=== PATIENT | male | born 1945 | race African-American/Black ===

== ENCOUNTER 2017-01-19 03:34 | Inpatient (IN) ==
[2017-01-19] MEDS ORDERED: CARDIZEM ONE (03:38)
[2017-01-19] MEDS ORDERED: CARDIZEM 100 MG/NS 100 MG/100 ML IVPB ONE (03:40)
--- NOTE | 2017-01-19 04:04 | PROVIDER DOCUMENTATION ---
HPI-Cardiac General - General Chief Complaint: Palpitations Stated Complaint: SOB Time Seen by Provider: 01/19/17 03:45 Source: patient, old records Allergies/Adverse Reactions: Patient Allergies Allergy/AdvReac Type Severity Reaction Status Date / Time No Known Allergies Allergy Verified 11/17/14 04:09 Home Medications: Home Medication List Medication Instructions Recorded Confirmed Last Taken Type Allopurinol 300 mg PO QAM 01/19/17 01/19/17 01/18/17 08:00 History Apixaban [Eliquis] 5 mg PO BID 01/19/17 01/19/17 01/18/17 20:00 History Atorvastatin Calcium 20 mg PO QHS 01/19/17 01/19/17 01/18/17 20:00 History Cholecalciferol (Vitamin D3) 400 unit PO QAM 01/19/17 01/19/17 01/18/17 08:00 History [Vitamin D] Magnesium Oxide 400 mg PO QHS 01/19/17 01/19/17 01/18/17 20:00 History Metoprolol Tartrate 50 mg PO BID 01/19/17 01/19/17 01/18/17 20:00 History Multivitamin [Multivitamins] 1 each PO QAM 01/19/17 01/19/17 01/18/17 08:00 History Tamsulosin HCl 0.8 mg PO QAM 01/19/17 01/19/17 01/18/17 08:00 History - History of Present Illness-Cardiac Nature of Presenting Problem: Patient awoke from sleep about 45 min ago with sob and palpitations. He was last hospitalized in Nov 2014 with atrial fib with RVR, discharged on dig and metoprolol and has remained in sinus rhythm until tonight. He did undergo cardiac cath confirming mild, diffuse coronary disease. Tonight he c/o orthopnea, SOB and palpitations. No chest pain. Quality of Pain: reports: none Context/Activities at Onset: reports: sleep Modifying Factors: improves with: nothing Palpitation Quality: fast/pounding heart beat History of arrythmia: reports: A-Fib Recent use of:: reports: no stimulants Nitro Today/Relief: reports: no nitro taken today Aspirin Treatment Today: reports: no aspirin today Prior Chest Pain/Cardiac Workup: reports: cardiac cath, cardiolite scan, echocardiography Associated Symptoms: reports: shortness of breath, weakness Similar Symptoms Previously?: Yes Recently Seen Here or By Another Healthcare Provider: No Review of Systems - Adult - REVIEW OF SYSTEMS - ADULT Constitutional: reports: no symptoms reported Eyes: reports: no symptoms reported Ears, Nose, Mouth & Throat: reports: no symptoms reported Cardiovascular: reports: see HPI Respiratory: reports: chronic cough, wheezing Gastrointestinal: reports: no symptoms reported Genitourinary: reports: no symptoms reported Musculoskeletal: reports: no symptoms reported Integumentary: reports: no symptoms reported Neurological: reports: no symptoms reported Psychiatric: reports: no symptoms reported Past History - Adult - PAST MEDICAL HISTORY-ADULT Review of Records: reports: Old Records Reviewed, Nursing Assessment Review, Medications Reviewed Major Childhood Illnesses: reports: denies history Cardiovascular: reports: HTN, hyperlipidemia Respiratory: reports: other (chronic sinus infections) Gastrointestinal: reports: ulcer Genitourinary: reports: denies history Musculoskeletal: reports: denies history Neurological: reports: denies history Psychiatric: reports: denies history Endocrine/Immune: reports: denies history Other Conditions: reports: denies history - PRIOR SURGERIES/PROCEDURES Surgical/Procedure History: reports: orthopedic (extremity) (rotator cuff) - FAMILY HISTORY Family History: reviewed, not pertinent Physical Exam-General - PHYSICAL EXAM-ADULT Initial Vital Signs Reviewed: Yes - CONSTITUTIONAL General Appearance: moderate distress, thin - EYES Eyes: PERRL/EOMI, pink conjunctivae - HEAD, EARS, NOSE, MOUTH & THROAT HENMT: normocephalic/atraumatic, moist mucous membranes, normal ENT inspection - NECK Neck: non-tender, full range of motion - RESPIRATORY Respiratory: chest non-tender, respiratory distress, decreased breath sounds, wheezing - CARDIOVASCULAR Cardiovascular: tachycardia, irregularly irregular - GASTROINTESTINAL (ABDOMEN) Abdominal Exam: non tender, soft, no organomegaly - MUSCULOSKELETAL Back Exam: normal inspection Extremity: normal range of motion, non-tender Peripheral Pulses: radial (R): 3+ - SKIN Integumentary: normal color, normal turgor - NEUROLOGIC Neurologic: grossly normal - PSYCHIATRIC Psych/Mental Status: normal mood/affect Progress - PLAN OF CARE/RESULTS Progress/Plan/Lab Results: Vital Signs - 8 hr 01/19/17 03:41 01/19/17 04:38 Temperature 98.5 F Pulse Rate 137 H 83 Respiratory Rate 26 H 20 Blood Pressure 153/109 147/90 O2 Sat by Pulse Oximetry 95 97 Laboratory Results - last 24 hr 01/19/17 01/19/17 01/19/17 03:56 03:56 03:56 WBC 11.82 H RBC 4.84 Hgb 14.2 Hct 41.8 L MCV 86.4 MCH 29.3 MCHC 34.0 RDW Std Deviation 14.6 H Plt Count 257 MPV 10.6 H Immature Gran % (Auto) 0.3 Neut % (Auto) 66.8 Lymph % (Auto) 24.8 [place] % (Auto) 5.9 Eos % (Auto) 1.9 Baso % (Auto) 0.3 Immature Gran # (Auto) 0.04 Neut # (Auto) 7.88 H Lymph # (Auto) 2.93 [place] # (Auto) 0.70 H Eos # (Auto) 0.23 Baso # (Auto) 0.04 Sodium 142 Potassium 4.2 Chloride 107 Carbon Dioxide 24 L Anion Gap 11 BUN 23 H Creatinine 1.7 H Estimated GFR/1.73 m2 48 BUN/Creatinine Ratio 14 Glucose 160 H Calculated Osmolality 290 Calcium 9.1 Magnesium 2.1 Total Bilirubin 0.76 AST 37 H ALT 35 Alkaline Phosphatase 91 Troponin T Total Protein 7.2 Albumin 4.2 Globulin 3.0 Albumin/Globulin Ratio 1.4 TSH Digoxin < 0.2 L 01/19/17 01/19/17 03:56 03:56 WBC RBC Hgb Hct MCV MCH MCHC RDW Std Deviation Plt Count MPV Immature Gran % (Auto) Neut % (Auto) Lymph % (Auto) [place] % (Auto) Eos % (Auto) Baso % (Auto) Immature Gran # (Auto) Neut # (Auto) Lymph # (Auto) [place] # (Auto) Eos # (Auto) Baso # (Auto) Sodium Potassium Chloride Carbon Dioxide Anion Gap BUN Creatinine Estimated GFR/1.73 m2 BUN/Creatinine Ratio Glucose Calculated Osmolality Calcium Magnesium Total Bilirubin AST ALT Alkaline Phosphatase Troponin T < 0.010 Total Protein Albumin Globulin Albumin/Globulin Ratio TSH 5.41 H Digoxin Orders Category Date Time Status CHEST-PORTABLE [RAD] Stat Exams 01/19/17 03:47 Taken CBC WITH ELECTRONIC DIFF [HEME] Stat Lab 01/19/17 03:56 Completed COMPREHENSIVE METABOLIC PANEL [CHEM] Stat Lab 01/19/17 03:56 Completed DIGOXIN [TDM] Stat Lab 01/19/17 03:56 Completed MAGNESIUM [CHEM] Stat Lab 01/19/17 03:56 Completed TROPONIN T Stat Lab 01/19/17 03:56 Completed TSH Stat Lab 01/19/17 03:56 Completed Diltiazem 100 mg/Ns [Cardizem 100 mg/Ns] Med 01/19/17 03:40 Discontinued 100 mg in 100 ml .ROUTE As Directed Diltiazem 100 mg/Ns [Cardizem 100 mg/Ns] Med 01/19/17 04:20 Active 100 mg in 100 ml IV Per Protocol Diltiazem [Cardizem] Med 01/19/17 04:20 Discontinued 20 mg IV NOW ONE Diltiazem [Cardizem] Med 01/19/17 03:38 Discontinued 25 mg .ROUTE .STK-MED ONE Ondansetron [Zofran] Med 01/19/17 04:46 Discontinued 4 mg .ROUTE .STK-MED ONE Ondansetron [Zofran] Med 01/19/17 04:51 Discontinued 4 mg IV NOW ONE EKG [EKG] Stat Ther 01/19/17 03:34 Ordered Result Diagrams: 01/19/17 03:56 01/19/17 03:56 - XRAY 1 XRAY Study: Chest Impression: See EMR Report (mild pul edema) - CONSULTS/PCP/HOSPITALIST Notification #1 *Consult/PCP/Hospitalist*: Dr Herrmann Time Discussed: 05:01 Consult Disposition: Will see in ED Departure - Departure Date of Disposition Decision: 01/19/17 Time of Disposition Decision: 05:01 DIAGNOSIS: Atrial fibrillation with rapid ventricular response Disposition: HOME 01 Certified Medical Emergency: Emergent Condition: Fair Referrals and Follow-Ups: None,PCP [Primary Care Provider] - - Critical Care Note This patient required my direct & personal management of CC.: No Attestation - Physician/ DONALD Attestation Patient care was provided by Advanced Practice Provider:: No The physician spent face to face time with patient:: Yes Advanced Practice Provider documentation review:: Supervising physician onsite and consulted in the evaluation and care of this patient. The physician did have a face to face encounter with the patient.
[2017-01-19 04:08] LABS: MANUAL DIFF NEEDED? NO
[2017-01-19 04:12] LABS: BASO% 0.3 % (0.0-0.8); EOS# 0.23 X1000 (0.0-0.7); EOS% 1.9 % (0.0-10.0); HEMATOCRIT 41.8 % (42.0-52.0); HEMOGLOBIN 14.2 g/dL (14.0-18.0); IMM GRAN# 0.04 X1000 (0.0-0.04); IMM GRAN% 0.3 % (0.0-0.5); LYMPH# 2.93 X1000 (1.2-3.4); LYMPH% 24.8 % (20.5-51.1); MCH 29.3 PG (27-31); MCV 86.4 FL (81-99); MONO% 5.9 % (1.7-9.3); MPV 10.6 FL (7.4-10.4); NEUT% 66.8 % (42.2-75.2); PLT 257 X1000 (130-400); RBC 4.84 XMIL (4.7-6.1)
[2017-01-19] MEDS ORDERED: CARDIZEM IV ONE (04:20)
[2017-01-19] MEDS ORDERED: CARDIZEM 100 MG/NS 100 MG/100 ML IVPB IV SCH (04:20)
[2017-01-19 04:26] LABS: ALBUMIN 4.2 g/dL (3.5-5.0); CALCIUM 9.1 mg/dL (8.8-10.2); MAGNESIUM 2.1 mg/dL (1.5-2.7); POTASSIUM 4.2 mmol/L (3.5-5.1); TOTAL BILIRUBIN 0.76 mg/dL (0.20-1.00); TOTAL PROTEIN 7.2 g/dL (6.3-8.3)
[2017-01-19] MEDS ORDERED: ZOFRAN ONE (04:46)
[2017-01-19] MEDS ORDERED: ZOFRAN IV ONE (04:51)
[2017-01-19] MEDS ORDERED: ZOFRAN IV PRN (05:49)
--- NOTE | 2017-01-19 06:37 | EKG Report ---
Test Performed on : 01/19/2017 03:28:10 AM Test Reason : SOB Blood Pressure : / mmHG Vent. Rate : 173 BPM Atrial Rate : 192 BPM P-R Int : 000 ms QRS Dur : 080 ms QT Int : 244 ms P-R-T Axes : 000 030 209 degrees QTc Int : 413 ms Atrial fibrillation. with rapid ventricular response. ST \T\ T wave abnormality, consider inferior ischemia ST \T\ T wave abnormality, consider anterolateral ischemia Abnormal ECG When compared with ECG of 20-NOV-2014 06:57, Atrial fibrillation. has replaced Sinus rhythm. Vent. rate has increased BY [address] now depressed in Anterolateral leads Inverted T waves have replaced nonspecific T wave abnormality in Lateral leads Unconfirmed Result
--- NOTE | 2017-01-19 07:24 | Diag Imaging Result Doc PS360 ---
CHEST-PORTABLE - 01/19/2017 INDICATION: sob TECHNIQUE: COMPARISON: 11/17/2014 FINDINGS: There are new diffuse bilateral ill-defined interstitial infiltrates. There is pulmonary vascular congestion new from prior. Heart size remains top normal. No pneumothorax or large effusion. IMPRESSION: Pulmonary vascular congestion and pulmonary edema. Electronically signed by Ignacio Rios 01/19/2017 7:21 AM
[2017-01-19] MEDS: TYLENOL PO PRN ×2 (08:12→21:20)
--- NOTE | 2017-01-19 09:15 | HISTORY AND PHYSICAL ---
CHIEF COMPLAINT: Palpitations and shortness of breath. HISTORY OF PRESENT ILLNESS: This 71-year-old male presented to the emergency room after waking up with a fluttering in his chest. He has carried the diagnosis of paroxysmal atrial fibrillation since at least 2014, when he was admitted to this hospital, and had a complete workup by Dr. Eric Keller, including heart catheterization and appropriate therapies. Patient had actually seen his primary care doctor, a Dr. Cavazos, in [place] yesterday, and the doctor told him to go to the emergency room if he had any difficulty with his heart. He apparently awoke in the middle of night with a rapid fluttering in his chest and became short of breath. He presented to the emergency room and according to the emergency room physician, had initial heart rate in the 180s. He had a negative cardiac enzyme workup and was made much more comfortable by reduction in heart rate via the application of IV diltiazem. The patient is admitted for Cardiology consultation and tune-up of his medications. It is noted the patient has not seen Dr. Keller since the workup in 2014 that I am aware of. PAST MEDICAL HISTORY: 1. Hypertension. 2. Hyperlipidemia. 3. Paroxysmal atrial fibrillation. 4. Gout. SURGICAL HISTORY: 1. Left rotator cuff repair. 2. Cardiac catheterization in 2014 which showed 35% to 40% right coronary disease and normal ejection fraction with no significant valvular abnormalities. SOCIAL HISTORY: The patient quit smoking 2 years ago after his workup here at [facility]. Prior to that, he smoked a pack and half a day for at least 50 years. He has not used any alcohol or drugs. He is a [place] . He gets a considerable amount of his care through the [facility]. He did not have known exposure to Agent [place]. FAMILY HISTORY: Positive prostate cancer. ALLERGIES: No known drug allergies. MEDICATIONS: The patient states he takes Eliquis and metoprolol. He did not list any other medications to me, but may be taking something for lipids as well. REVIEW OF SYSTEMS: Patient denies any cough, wheezing, shortness of breath prior to the onset of this palpitations tonight. At no time during this episode did he have any chest pain consistent with coronary disease. In fact, he had no chest pain at all. He had a slight bit of nausea, but did not vomit. This resolved as his heart rate came down. He has had normal bowel function with no dark stools or bloody stools. She has normal urinary function. He has not had any swelling of his extremities. He denies any symptoms consistent with orthopnea. He has had no fever or chills, and his weight is stable. There been no neurological or psychiatric changes in the patient. VITAL SIGNS: Initial vital signs listed from the emergency room are 98.5, heart rate 137, respiratory rate 26, blood pressure 153/109, 90% oxygen saturated on room air. As reported earlier in this text, the initial heart rate was in the 180s, but I was not able to locate that initial EKG in the emergency room. PHYSICAL EXAM: GENERAL: He is a well-developed black male in no acute distress. NEUROLOGIC: He is alert, oriented, conversive, and appropriate. NECK: There is no JVD in the semirecumbent position. LUNGS: Clear, but he has somewhat diminished air movement consistent with COPD. He is not wheezing. He states that he was wheezing at home, but I did not hear it. CARDIOVASCULAR: The patient is in irregularly irregular rhythm which shows atrial fibrillation, on the monitor. His heart rate is variable, but within the realm of the 80s and 90s at the present time. ABDOMEN: Bowel sounds are present. He is nontender and nondistended. GENITOURINARY AND RECTAL: Not performed. EXTREMITIES: No peripheral edema. LABORATORIES: White cell count was 11.8, hematocrit 41.8. Carbon dioxide was 24, BUN 23, creatinine 1.7 (baseline from 2015 is 1.5), glucose was 160 (no known history of diabetes). Cardiac enzymes were negative. TSH slightly elevated at 5.4. ASSESSMENT AND PLAN: 1. The patient has had a flare-up of his paroxysmal atrial fibrillation and likely needs medication tune-up. Because they have already have a titrated diltiazem drip hanging, we will admit to the [facility] and get Cardiology consultation during daylight hours. The patient may have suffered from some pulmonary edema during his most rapid heart rate. Hopefully, this has resolved as heart rate has come down, but may bear further monitoring. 2. I have consulted Dr. Casanova for 8 o'clock in the morning. 3. The patient had signs and symptoms consistent with his smoking history and chronic obstructive pulmonary disease. I do not think he has acute exacerbation at the present time. We will continue to monitor this. He will have oxygen administered. 4. We may want to investigate the patient's lipid status after confirming medications and reconciling those. 5. The patient has [id number] renal insufficiency, likely as a result of the longstanding hypertension and possibly from vascular disease. We will continue to monitor this, and this will need to be taken into consideration, if there is any further diagnostic testing performed requiring any contrast media. cc: Raffaele Herrmann MD
[2017-01-19] MEDS ORDERED: ZITHROMAX 500 MG/NS 500 MG/250 ML IVPB IV SCH (09:30)
--- NOTE | 2017-01-19 09:58 | Diag Imaging Result Doc PS360 ---
CT THORAX W/O CONTRAST - 01/19/2017 INDICATION: Pulmonary edema TECHNIQUE: A CT dose reduction protocol was used. COMPARISON: Chest x-ray from earlier today FINDINGS: There are small bilateral pleural effusions. There is mild interstitial pulmonary edema with some intralobular septal thickening. There are a few scattered small pulmonary nodules bilaterally measuring up to about 7 mm. The airways are clear. There is mild nonspecific mediastinal lymphadenopathy. There is mild cardiomegaly. Great vessels are normal. Upper abdominal images are unremarkable. There are moderate degenerative changes of the spine. No acute or suspicious bony lesion. IMPRESSION: 1. Cardiomegaly, pulmonary edema, small pleural effusions. 2. Mild, nonspecific mediastinal adenopathy. 3. Small scattered bilateral pulmonary nodules. Chest CT follow-up recommended after the patient is better, in about six months. Electronically signed by Ignacio Rios 01/19/2017 9:56 AM
[2017-01-19] MEDS: ZYLOPRIM PO SCH (09:59)
[2017-01-19] MEDS: THERA M PLUS PO SCH (09:59)
[2017-01-19] MEDS: FLOMAX PO SCH (09:59)
[2017-01-19] MEDS: ELIQUIS PO SCH ×2 (09:59→21:08)
--- NOTE | 2017-01-19 10:53 | CONSULTATION ---
DATE OF CONSULTATION: 01/19/2017 REASON FOR CONSULTATION: Cardiology consulted for his heart failure, atrial fibrillation, rapid ventricular rate. HISTORY OF PRESENT ILLNESS: Mr. Damien Cavazos is a 71-year-old -[place] gentleman who came to the emergency room with increasing fluttering, atrial fibrillation, and increasing shortness of breath for the last 2-3 days. The patient's family physician is Dr. Cavazos in [place], and he had contacted him and noted that he was short of breath and wheezing and had palpitations. Subsequently, he took his medications. Symptoms worsened. He came to the emergency room and was noted to be in atrial fibrillation, rapid ventricular rate. Chest x-ray of heart failure. He was started on a Cardizem drip. He had a CT scan done this morning which revealed bilateral pleural effusion and features of heart failure. He was also started on antibiotics for respiratory tract infection. The patient denies any chest pain. In the past, he has had known coronary artery disease, which was minimal by cardiac catheterization 11/20/2014. For his atrial fibrillation, he was on Multaq in the past which was discontinued in the [facility] when he was evaluated there. He feels much better since his admission. His heart rate is better controlled. REVIEW OF SYSTEMS: A 14-point review of systems was doneGastrointestinal System: There is no history of nausea, vomiting, diarrhea. There is no history of hematemesis or melena. Central nervous system: No focal weakness to suggest a CVA or TIA. Genitourinary System: There is no dysuria or hematuria. PAST MEDICAL HISTORY: Chronic atrial fibrillation, gout, hypertension, hyperlipidemia, minimal coronary artery disease. Last cardiac catheterization at [facility] in 2014 revealed left anterior descending artery was normal. Circumflex ostial 40%. Mid circumflex 40%. RCA distal 40%. 35% with preserved left ventricular systolic function. He has mild renal insufficiency. Hyperlipidemia. HOME MEDICATIONS: His home medications include 1. Atorvastatin 20. 2. Mag Ox. 3. Metoprolol 50 mg p.o. b.i.d. 4. Eliquis 5 mg p.o. b.i.d. 5. Allopurinol 300 q.a.m. 6. Cholecalciferol and tamsulosin. SOCIAL HISTORY: He does not smoke. There is no history of alcohol abuse. PHYSICAL EXAMINATION: Vital Signs: Blood pressure was 128/76. Cardiovascular System: Normal jugular venous pressure. First and second heart sounds were heard. There is no S3 gallop. Respiratory System: Bibasilar inspiratory crepitations. Abdomen: Soft, nontender. There was no guarding or rigidity. Bowel sounds were heard. Central Nervous System: Alert, oriented, moving all 4 extremities. Extremities: Examination of extremities revealed no pedal edema. HEENT: Atraumatic, normocephalic. Pupils were equal and reacting to light. LABORATORY EXAMINATION: Sodium 142, potassium 4.2. BUN 23, creatinine 1.7. ProBNP elevated at 2082. Cardiac enzyme negative. ASSESSMENT AND PLAN: Mr. Damien Cavazos is a 71-year-old black gentleman with history of chronic atrial fibrillation, minimal coronary artery disease, preserved left ventricular systolic function, hypertension, mild renal insufficiency. He has noticed increasing shortness of breath over the last couple of days. He was admitted with a rapid ventricular rate atrial fibrillation and worsening heart failure. His CT scan revealed no evidence of pulmonary embolism. There was bilateral pleural effusion, mild, with features of heart failure. PLAN: 1. We will get an echocardiogram to assess cardiac and valvular function. 2. His heart rate is better controlled. We will discontinue the Cardizem drip and put him on Cardizem 180 mg a day and continue with Toprol 50 mg twice daily. 3. Mild renal insufficiency. We will monitor blood work. 4. The patient has diastolic heart failure probably triggered by atrial fibrillation. We will put him on Lasix 40 mg daily as well. 5. He has minimal coronary artery disease by cardiac catheterization 2014. Once he is more euvolemic on Sunday, we will plan for a Lexiscan Cardiolite stress test to make sure there is no significant ischemia. 6. He has had blood cultures pending. 7. Continue his medications for gout. 8. For stroke prophylaxis, he is anticoagulated with Eliquis. I have continued that and not made any other changes. Thank you for the consultation. We will follow hospital course. cc: Saeed Casanova MD
[2017-01-19] MEDS: ROCEPHIN 1 GM in NS 50 ML IV SCH (11:01)
[2017-01-19] MEDS: LASIX IV SCH (11:01)
[2017-01-19] MEDS: CARDIZEM CD PO SCH (11:01)
[2017-01-19 12:36] LABS: UR CREAT RANDOM 93.7 mg/dL (14-26); UR PROT RANDOM 9.7 mg/dL
[2017-01-19] MEDS: TOPROL XL PO SCH (21:08)
[2017-01-19] MEDS: LIPITOR PO SCH (21:08)
[2017-01-20 04:57] LABS: MANUAL DIFF NEEDED? NO
[2017-01-20 05:09] LABS: BASO% 0.6 % (0.0-0.8); EOS# 0.18 X1000 (0.0-0.7); EOS% 2.7 % (0.0-10.0); HEMATOCRIT 38.3 % (42.0-52.0); HEMOGLOBIN 12.9 g/dL (14.0-18.0); LYMPH# 1.74 X1000 (1.2-3.4); LYMPH% 26.4 % (20.5-51.1); MCH 29.3 PG (27-31); MCHC 33.7 g/dL (33-37); MCV 86.8 FL (81-99); MONO# 0.65 X1000 (0.11-0.59); MONO% 9.8 % (1.7-9.3); MPV 10.8 FL (7.4-10.4); NEUT% 60.5 % (42.2-75.2); PLT 225 X1000 (130-400); RBC 4.41 XMIL (4.7-6.1)
[2017-01-20 05:23] LABS: POTASSIUM 3.8 mmol/L (3.5-5.1)
--- NOTE | 2017-01-20 07:57 | Diag Imaging Result Doc PS360 ---
CHEST-PORTABLE - 01/20/2017 INDICATION: dyspnea TECHNIQUE: COMPARISON: 01/19/2017 FINDINGS: There is decrease in the central interstitial infiltrate/edema. Stable mild cardiomegaly. No pneumothorax or large effusion. IMPRESSION: Improvement in the pulmonary edema. Electronically signed by Ignacio Rios 01/20/2017 7:55 AM
[2017-01-20] MEDS: FLOMAX PO SCH (08:46)
[2017-01-20] MEDS: THERA M PLUS PO SCH (08:46)
[2017-01-20] MEDS: ELIQUIS PO SCH ×2 (08:46→20:53)
[2017-01-20] MEDS: LASIX IV SCH (08:46)
[2017-01-20] MEDS: TOPROL XL PO SCH ×2 (08:46→20:53)
[2017-01-20] MEDS: ZYLOPRIM PO SCH (08:46)
[2017-01-20] MEDS: CARDIZEM CD PO SCH (08:46)
[2017-01-20] MEDS: ROCEPHIN 1 GM in NS 50 ML IV SCH (08:49)
--- NOTE | 2017-01-20 10:50 | ECHO REPORT ---
ORDER DATE: 01/19/2017 INTERPRETING PHYSICIAN: Dr. Keller REQUESTING PHYSICIAN: CLINICAL INDICATIONS: This is a 71-year-old male with CHF, hypertension. M-MODE MEASUREMENTS: Right ventricle: 2.9 cm. Left ventricle end diastole: 3.8 cm. Left ventricle end systole: 2.9 cm. Posterior wall: 1.4 cm. Interventricular septum: 1.4 cm. Left atrium: 4.9 cm. Aortic root: 3.1 cm. SUMMARY OF 2-DIMENSIONAL IMAGIN. The left ventricle is not dilated. Left ventricular systolic function is normal. Ejection fraction is 59%. 2. Right ventricle appears to be mildly enlarged. 3. Aortic valve has 3 cusps, they open normally. Color flow mapping is unremarkable. 4. Mitral valve opens normally. Color flow mapping indicates mild degree of regurgitation. 5. Pulse wave Doppler of mitral inflow is normal. 6. Tissue Doppler of septal and lateral mitral annulus is normal. 7. Please note that the patient is in atrial fibrillation, and therefore there is a single filling wave. Diastolic function cannot be properly evaluated because of that fact. 8. Tricuspid valve showed mild degree of regurgitation. 9. The inferior vena cava is at the upper limits of normal. 10.Pulmonary pressure is estimated at 30 to 35 mmHg. 11.Pulmonic valve showed mild degree of regurgitation. 12.There is no pericardial effusion, mass or thrombus. 13.Left atrium appears to be moderately enlarged. 14.The inferior vena cava is really not dilated. CONCLUSIONS: This study shows: 1. Normal left ventricular systolic function. Ejection fraction is 59%. 2. Mild degree of mitral and tricuspid as well as pulmonic regurgitation. 3. Diastolic function is probably normal; however, it cannot be accurately evaluated because of atrial fibrillation. 4. Pulmonary pressure is estimated to be in the range of 30 to 35 mmHg. 5. Left atrium is moderately enlarged. 6. The patient is in atrial fibrillation. Clinical correlation is recommended. cc: MD Saeed Farnsworth MD
--- NOTE | 2017-01-20 14:52 | PROGRESS NOTE ---
DATE: 01/20/2017 SUBJECTIVE: Patient denies chest discomfort or dyspnea on supplemental oxygen per nasal cannula. He relates symptoms of tachy palpitations and some wheezing prior to his hospitalization. He is not aware of any fever and he had no sputum production. OBJECTIVE: Vital Signs: Blood pressure 131/90, heart rate 77 and irregular, oxygen saturation 97%. Neck: There is no significant jugular venous distention. Chest: Clear to auscultation. Cardiac Exam: Reveals a irregular rate and rhythm without appreciable murmur or gallop. There is no evidence of peripheral edema. IMAGING: Chest x-ray done this morning shows improvement in pulmonary interstitial edema. There are no pleural effusions evident. Echocardiography indicates normal left ventricular systolic function. Diastolic function not able to be determined due to atrial fibrillation. Left atrium moderately enlarged. Mild mitral regurgitation also noted. IMPRESSION: 1. Chronic atrial fibrillation with development of rapid ventricular rate contributing to patient's development of pulmonary edema. 2. Transient pulmonary edema probably related to some degree of left ventricular diastolic dysfunction aggravated by tachycardia. 3. Hypertensive cardiovascular disease. 4. Mild renal insufficiency. 5. Mild coronary atherosclerosis by coronary angiography in 2014. RECOMMENDATIONS: 1. Continue anticoagulation with Eliquis. 2. Continue rate control with long-acting diltiazem and metoprolol succinate. 3. Transition to oral Lasix. 4. Given clinical improvement with rate control and diuresis, reasonable to consider allowing patient to go home next 24 hours and following up with his regular it security manager, Dr. Keller. cc: Vini Richardson MD
[2017-01-20] MEDS: LIPITOR PO SCH (20:53)
[2017-01-21 05:54] LABS: MANUAL DIFF NEEDED? NO
[2017-01-21 06:04] LABS: BASO% 0.6 % (0.0-0.8); EOS# 0.29 X1000 (0.0-0.7); EOS% 4.1 % (0.0-10.0); HEMATOCRIT 39.9 % (42.0-52.0); HEMOGLOBIN 13.6 g/dL (14.0-18.0); LYMPH# 2.29 X1000 (1.2-3.4); LYMPH% 32.6 % (20.5-51.1); MCH 29.3 PG (27-31); MCHC 34.1 g/dL (33-37); MONO# 0.73 X1000 (0.11-0.59); MONO% 10.4 % (1.7-9.3); MPV 10.6 FL (7.4-10.4); NEUT% 52.3 % (42.2-75.2); PLT 243 X1000 (130-400); RBC 4.64 XMIL (4.7-6.1)
[2017-01-21 06:13] LABS: HEMOGLOBIN A1C 5.6 % (4.8-6.0)
[2017-01-21 06:26] LABS: CALCIUM 9.7 mg/dL (8.8-10.2); POTASSIUM 3.7 mmol/L (3.5-5.1)
[2017-01-21 07:07] VITALS: BP 135/91
[2017-01-21] MEDS: LASIX IV SCH (08:40)
[2017-01-21] MEDS: THERA M PLUS PO SCH (08:40)
[2017-01-21] MEDS: CARDIZEM CD PO SCH (08:40)
[2017-01-21] MEDS: FLOMAX PO SCH (08:40)
[2017-01-21] MEDS: ZYLOPRIM PO SCH (08:40)
[2017-01-21] MEDS: ELIQUIS PO SCH (08:40)
[2017-01-21] MEDS: TOPROL XL PO SCH (08:40)
--- NOTE | 2017-01-21 09:24 | Diag Imaging Result Doc PS360 ---
CHEST-2 VIEWS - 01/21/2017 INDICATION: chf TECHNIQUE: COMPARISON: 01/20/2017 FINDINGS: There is improvement in the cardiomegaly and pulmonary vascular congestion. No edema at this time. There are trace pleural effusions. IMPRESSION: Improvement from prior. Electronically signed by Ignacio Rios 01/21/2017 9:21 AM
--- NOTE | 2017-01-21 10:27 | PROGRESS NOTE ---
DATE: 01/21/2017 SUBJECTIVE: Patient denies chest discomfort or dyspnea on room air. Reports feeling well. He desires to go home today. OBJECTIVE: Vital signs: Blood pressure 135/90, heart rate 74 and irregular, oxygen saturation 99% on room air. ECG monitor shows atrial fibrillation with heart rate around 95-105 beats per minute. Neck: There is no significant jugular distention. Chest: Clear to auscultation bilaterally. Cardiac: Reveals an irregular rate and rhythm without appreciable murmur or gallop. There is no evidence of peripheral edema. LAB DATA: Includes a white blood cell count 7.0, hematocrit 39.9. BUN 21, creatinine 1.4. IMPRESSIONS: 1. Chronic atrial fibrillation with development of rapid ventricular rate response contributing to patient's development of pulmonary edema. 2. Transient pulmonary edema related to some degree of left ventricular diastolic dysfunction aggravated by tachycardia. 3. Hypertensive cardiovascular disease. 4. Mild renal insufficiency. 5. Mild coronary atherosclerosis by coronary angiography in 2014. RECOMMENDATIONS: 1. I am going to continue long-term anticoagulation with Eliquis. 2. Continue rate control with diltiazem and metoprolol. 3. Continue oral Lasix daily. 4. Given clinical improvement and patient's desire to go home, it is reasonable to discharge him today and arrange follow up with his regular wigs salesperson, Dr. Keller, in approximately 2 weeks. cc: Vini Richardson MD
--- NOTE | 2017-01-22 03:49 | PROGRESS NOTE ---
DATE: 01/20/2017 SUBJECTIVE: The patient is resting comfortably in bed. He states that his shortness of breath has improved and he denies having any palpitations today, he denies having chest pain. OBJECTIVE: Vital Signs: Temperature 98.2 degrees, blood pressure 131/90, heart rate 77 ,respirations 18, O2 saturations 97% on 2 L nasal cannula. General: This is a elderly male lying in bed in no acute distress. Heart: S1, S2. Normal. Lungs: Equal air entry bilaterally, no crackles, no rales. Abdomen: Positive bowel sounds, soft, nontender, nondistended. Extremities: No edema. No cyanosis. Neuro: The patient is alert oriented x4. LABS: Sodium 146, potassium 3.8, chloride 107, CO2 27, BUN 21, creatinine 1.5 , glucose 118, white blood cell count 6.6, hemoglobin 12, hematocrit 38. ASSESSMENT AND PLAN: 1. Acute diastolic congestive heart failure exacerbation. Improved. The patient is responding well to diuretic therapy. Continue on the current medications as directed by the buggyman. 2. Mild pulmonary edema. Slowly improving. 3. Atrial fibrillation. Patient is currently rate controlled. Continue on Cardizem CD and Toprol-XL for rate control. The patient is also on Eliquis. 4. Benign prostatic hypertrophy. Continue on Flomax. 5. Chronic kidney disease. Stable. 6. Hypernatremia. Will monitor the patient's sodium level closely. cc: Lia Headley MD MTDD
--- NOTE | 2017-01-22 06:03 | EKG Report ---
Test Performed on : 01/20/2017 06:05:48 AM Test Reason : afib Blood Pressure : / mmHG Vent. Rate : 095 BPM Atrial Rate : 087 BPM P-R Int : 000 ms QRS Dur : 084 ms QT Int : 386 ms P-R-T Axes : 000 018 020 degrees QTc Int : 485 ms Atrial fibrillation. Prolonged QT Abnormal ECG When compared with ECG of 19-JAN-2017 03:39, (Unconfirmed) ST no longer depressed in Anterior leads Nonspecific T wave abnormality, improved in Inferior leads QT has lengthened Confirmed by Forest ROBBINS, Kody Siddiqi ([id number]) on 01/22/2017 9:10:41 AM
--- NOTE | 2017-01-22 18:26 | Diag Imaging Result Document ---
PROCEDURE NAME: MYOCARDIAL PERFU SCAN, REST - 01/22/2017 STUDY: Resting gated myocardial perfusion study. REQUESTING PHYSICIAN: Dr. Casanova. INDICATION: Patient with chest pain, CHF, coronary heart disease. DESCRIPTION: The patient came into the Nuclear Lab, received a rest injection of technetium 99 sestamibi 35.6 millicuries. Multiple tomographic views of the cardiac structure were obtained at rest. SUMMARY OF FINDINGS: Resting tomographic views of the left ventricle showed normal homogeneous distribution of radiotracer throughout the entire left ventricular myocardium. There is no evidence of any rest defect. Polar plot shows normal perfusion. Gated SPECT shows normal left ventricular systolic function. Ejection fraction 66% with normal ventricular volumes. No wall motion abnormality. Lung-heart ratio at rest is normal. IMPRESSION: In summary, this resting gated myocardial perfusion study shows: 1. Normal myocardial perfusion at rest. 2. Normal left ventricular systolic function. Ejection fraction 66%. Clinical correlation recommended. cc: MD Saeed Farnsworth MD
--- NOTE | 2017-01-31 05:48 | ED EKG INTERP ---
This chart was entered by Dunia Jose Scribe, acting as scribe for Corbin Gongora MD. EKG Interpretation - EKG Time of EKG reading by physician:: 03:28 EKG Read and Signed by:: Corbin Gongora EKG Interpretation (*Must complete 3 of following elements*): Abnormal Rate: 173 (ST and T wave abnormality, consider inferior ischemia; ST and T wave abnormality, consider anterolateral ischemia ) Rhythm: a-fib w rapid ventricular response Attestation - Physician/ DONALD Attestation Patient care was provided by Advanced Practice Provider:: No The physician spent face to face time with patient:: No Advanced Practice Provider documentation review:: Supervising physician onsite and consulted in the evaluation and care of this patient. The physician did not have a face to face encounter with the patient. This chart was documented by the indicated scribe, (Dunia Jose Scribe) and accurately reflects the services I performed and decisions made by me, Corbin Gongora MD, as attested by the provider's signature.
== END 2017-01-21 11:03 | disposition home or self-care (01) ==
LOC: SUATTDRO → ED 03:34 → 3S 03:34 → SUATTDRO 07:24
PROVIDERS: ATTEND Internal Medicine

== ENCOUNTER 2019-05-06 22:52 | Observation (INO) ==
[2019-05-06] MEDS ORDERED: ASPIRIN PO ONE (23:31)
[2019-05-06 23:52] LABS: BASO# 0.05 X1000 (0.0-0.2); BASO% 0.7 % (0.0-0.8); EOS# 0.17 X1000 (0.0-0.7); EOS% 2.3 % (0.0-10.0); HEMATOCRIT 41.9 % (42.0-52.0); HEMOGLOBIN 13.9 g/dL (14.0-18.0); IMM GRAN# 0.02 X1000 (0.0-0.04); IMM GRAN% 0.3 % (0.0-0.5); LYMPH# 2.44 X1000 (1.2-3.4); LYMPH% 33.4 % (20.5-51.1); MCH 29.4 PG (27-31); MCHC 33.2 g/dL (33-37); MCV 88.8 FL (81-99); MONO% 9.6 % (1.7-9.3); MPV 10.2 FL (7.4-10.4); NEUT# 3.93 X1000 (1.4-6.5); NEUT% 53.7 % (42.2-75.2); PLT 222 X1000 (130-400); RBC 4.72 XMIL (4.7-6.1); RDW 14.5 % (11.5-14.5); WBC 7.31 X1000 (4.8-10.8)
[2019-05-06 23:58] LABS: INR 1.01; PROTIME 13.4 Seconds (11.0-16.0)
[2019-05-07 00:10] LABS: ALB/GLOB RATIO 1.5; ALBUMIN 4.4 g/dL (3.5-5.0); CALCIUM 9.2 mg/dL (8.8-10.2); CREATININE 1.6 mg/dL (0.7-1.2); POTASSIUM 3.6 mmol/L (3.5-5.1); TOTAL BILIRUBIN 0.72 mg/dL (0.20-1.00); TOTAL PROTEIN 7.3 g/dL (6.3-8.3)
[2019-05-07 00:40] LABS: CK INDEX 1.1 (0.0-2.5); CK-MB 3.76 ng/mL (0.0-5.0)
--- NOTE | 2019-05-07 01:08 | PROVIDER DOCUMENTATION ---
This chart was entered by Dunia Botello Scribe, acting as scribe for Amada Woo MD. HPI-Chest Pain - General Chief Complaint: Chest Pain Stated Complaint: CHEST PAIN/SOB/LEFT ARM PAIN Time Seen by Provider: 05/06/19 23:29 Source: patient Allergies/Adverse Reactions: Patient Allergies Allergy/AdvReac Type Severity Reaction Status Date / Time No Known Allergies Allergy Verified 03/28/17 13:50 Home Medications: Home Medication List Medication Instructions Recorded Confirmed Last Taken Type Allopurinol 300 mg PO QAM 01/19/17 05/07/19 05/06/19 07:00 History Apixaban [Eliquis] 5 mg PO BID 01/19/17 05/07/19 05/06/19 07:00 History Atorvastatin Calcium 20 mg PO QHS 01/19/17 05/07/19 05/05/19 22:00 History Cholecalciferol (Vitamin D3) 400 unit PO QAM 01/19/17 05/07/19 05/05/19 22:00 History [Vitamin D3] Magnesium Oxide 400 mg PO QHS 01/19/17 05/07/19 05/05/19 22:00 History Tamsulosin HCl 0.4 mg PO QAM 01/19/17 05/07/19 05/06/19 07:00 History Furosemide [Lasix] 40 mg PO DAILY #30 tablet 01/21/17 05/07/19 05/06/19 07:00 Rx Metoprolol Succinate E.r. [Toprol 50 mg PO BID #60 tablet 01/21/17 05/07/19 05/06/19 07:00 Rx Xl] Amiodarone [Cordarone] 200 mg PO DAILY 03/28/17 05/07/19 05/06/19 07:00 History Aspirin 81 mg PO DAILY 03/28/17 05/07/19 05/06/19 07:00 History Fluticasone Propionate [Flonase 9.9 ml NS DAILY 03/28/17 05/07/19 05/06/19 07:00 History Allergy Relief] Hydralazine [Apresoline] 10 mg PO TID #90 tab 05/03/19 05/07/19 05/06/19 12:00 Rx - History of Present Illness-CP Nature of Presenting Problem: Pt is a 73 yom who presents to the ED with a cc of intermittent sharp central chest pain w/ radiation down left arm and SOB. Pt states that pain worsens with deep breathing. He states this has been happening for the last few days to weeks. Pt states that the pain began around 5pm today. Pt states that he has a hx of afib and CHF. Pt denies any fever, nausea, or any other complaints. He states he has had a stress test many years ago. Dr Keller is his Dr. Location: reports: central Chest Pain Radiation: reports: other (L arm) Quality of Pain: reports: sharp Severity in ED: moderate Onset/Duration: 4-6 hours ago, other (5pm) Timing: intermittent Context/Activities at Onset: reports: rest Modifying Factors: improves with: breathing (deep breathing) Associated Symptoms: reports: shortness of breath Nitro Today/Relief: no nitro taken today Aspirin Treatment Today: provided by ED Prior Chest Pain/Cardiac Workup: reports: stress test Similar Symptoms Previously?: No Recently Seen Here or By Another Healthcare Provider: No Review of Systems - Adult - REVIEW OF SYSTEMS - ADULT Constitutional: reports: no symptoms reported Eyes: reports: no symptoms reported Ears, Nose, Mouth & Throat: reports: no symptoms reported Cardiovascular: reports: see HPI, chest pain (w/ radiation down left arm) Respiratory: reports: see HPI, shortness of breath Gastrointestinal: reports: no symptoms reported Genitourinary: reports: no symptoms reported Musculoskeletal: reports: no symptoms reported Integumentary: reports: no symptoms reported Neurological: reports: no symptoms reported Psychiatric: reports: no symptoms reported Endocrine: reports: no symptoms reported Hematologic/Lymphatic: reports: no symptoms reported Allergic/Immunologic: reports: no symptoms reported All Other Systems: Reviewed and Negative Past History - Adult - PAST MEDICAL HISTORY-ADULT Review of Records: reports: Nursing Assessment Review Major Childhood Illnesses: reports: denies history Cardiovascular: reports: A-Fib, CHF, HTN, hyperlipidemia Respiratory: reports: other (chronic sinus infections) Gastrointestinal: reports: ulcer Genitourinary: reports: denies history Musculoskeletal: reports: denies history Neurological: reports: denies history Psychiatric: reports: denies history Endocrine/Immune: reports: denies history Other Conditions: reports: denies history - PRIOR SURGERIES/PROCEDURES Surgical/Procedure History: reports: orthopedic (extremity) (rotator cuff) - IMMUNIZATION STATUS Childhood Immunizations: See Nurse Assessment Flu Vaccine: See Nurse Assessment - FAMILY HISTORY Family History: reviewed, not pertinent Physical Exam-General - PHYSICAL EXAM-ADULT Initial Vital Signs Reviewed: Yes - CONSTITUTIONAL General Appearance: alert, no apparent distress - EYES Eyes: PERRL/EOMI, pink conjunctivae - HEAD, EARS, NOSE, MOUTH & THROAT HENMT: normocephalic/atraumatic - RESPIRATORY Respiratory: chest non-tender, lungs clear, no respiratory distress. negative: normal breath sounds (decreased) - CARDIOVASCULAR Cardiovascular: normal peripheral pulses, bradycardia. negative: regular rate, rhythm - SKIN Integumentary: normal color, normal turgor, warm/dry. negative: ecchymosis, e rythema - NEUROLOGIC Neurologic: grossly normal - PSYCHIATRIC Psych/Mental Status: normal mood/affect, normal thought content, normal thought process, oriented x 3 - HEART Score HEART Score: History: Moderately Suspicious HEART Score: ECG: Non-Specific Repolarization Disturbance/LBBB/PM HEART Score: Age: > or = 65 Years HEART Score: Risk Factors for Atherosclerotic Disease: 1 or 2 Risk Factors HEART Score: Troponin: < or = Normal Limit Total HEART Score:: 5 Progress - PLAN OF CARE/RESULTS Progress/Plan/Lab Results: Vital Signs - 8 hr 05/06/19 23:16 Temperature 98.5 F Pulse Rate 57 L Respiratory Rate 18 Blood Pressure 203/76 O2 Sat by Pulse Oximetry 94 L Laboratory Results - last 24 hr 05/06/19 05/06/19 05/06/19 23:29 23:29 23:29 WBC 7.31 RBC 4.72 Hgb 13.9 L Hct 41.9 L MCV 88.8 MCH 29.4 MCHC 33.2 RDW Std Deviation 14.5 Plt Count 222 MPV 10.2 Immature Gran % (Auto) 0.3 Neut % (Auto) 53.7 Lymph % (Auto) 33.4 Wilkinson % (Auto) 9.6 H Eos % (Auto) 2.3 Baso % (Auto) 0.7 Immature Gran # (Auto) 0.02 Neut # (Auto) 3.93 Lymph # (Auto) 2.44 Wilkinson # (Auto) 0.70 H Eos # (Auto) 0.17 Baso # (Auto) 0.05 PT INR PTT (Actin FS) Sodium 141 Potassium 3.6 Chloride 103 Carbon Dioxide 27 Anion Gap 11 BUN 15 Creatinine 1.6 H Estimated GFR/1.73 m2 51 BUN/Creatinine Ratio 9 Glucose 125 H Calculated Osmolality 284 Calcium 9.2 Total Bilirubin 0.72 AST 46 H ALT 43 Alkaline Phosphatase 92 Creatine Kinase 357 H Creatine Kinase Index 1.1 CK-MB (CK-2) 3.76 Troponin T High Sens Iuz-M-Mordstdocwb Pept 140 Total Protein 7.3 Albumin 4.4 Globulin 2.9 Albumin/Globulin Ratio 1.5 05/06/19 05/06/19 23:29 23:29 WBC RBC Hgb Hct MCV MCH MCHC RDW Std Deviation Plt Count MPV Immature Gran % (Auto) Neut % (Auto) Lymph % (Auto) Wilkinson % (Auto) Eos % (Auto) Baso % (Auto) Immature Gran # (Auto) Neut # (Auto) Lymph # (Auto) Wilkinson # (Auto) Eos # (Auto) Baso # (Auto) PT 13.4 INR 1.01 PTT (Actin FS) 34.0 Sodium Potassium Chloride Carbon Dioxide Anion Gap BUN Creatinine Estimated GFR/1.73 m2 BUN/Creatinine Ratio Glucose Calculated Osmolality Calcium Total Bilirubin AST ALT Alkaline Phosphatase Creatine Kinase Creatine Kinase Index CK-MB (CK-2) Troponin T High Sens 19 Cwb-B-Idkkjvlnkjg Pept Total Protein Albumin Globulin Albumin/Globulin Ratio Orders Category Date Time Status Cardiac Monitoring DIRECTED Care 05/06/19 23:32 Active Oxygen Therapy- ED Nursing DIRECTED Care 05/06/19 23:32 Active Saline Loc NOW Care 05/06/19 23:32 Active CHEST-2 VIEWS [RAD] Stat Exams 05/06/19 23:32 Taken CBC WITH ELECTRONIC DIFF [HEME] Stat Lab 05/06/19 23:29 Completed CK PROFILE [SP CHEM] Stat Lab 05/06/19 23:29 Completed COMPREHENSIVE METABOLIC PANEL [CHEM] Stat Lab 05/06/19 23:29 Completed PRO B-NATRIURETIC PEPTIDE Stat Lab 05/06/19 23:29 Completed PROTIME WITH INR [COAG] Stat Lab 05/06/19 23:29 Completed PTT [COAG] Stat Lab 05/06/19 23:29 Completed TROPONIN T HIGH SENSITIVITY Stat Lab 05/06/19 23:29 Completed Aspirin Med 05/06/19 23:31 Discontinued 325 mg PO NOW ONE Nitroglycerin Med 05/07/19 02:26 Discontinued 1 inch TOP NOW ONE CP/SOB/Palp >45 yrs of Age Stat Oth 05/06/19 23:31 Ordered EKG [EKG] Stat Ther 05/06/19 23:32 Ordered Transfer/Admit Order [TRANSFER] Routine Transfer 05/07/19 01:31 Ordered Chest pain reproducilbe on breathing but patient with nonspecific ST changes and negative trop. Some of his story is concerning with intermittent CP, radiating down left arm. Spoke to patient about getting rpt trop and patient following up outpatient vs staying in house for ACS and possible stress test and patient s tated that he wanted to stay. Spoke to hospitalist deputy coroner investigator who accepted patient admission. Further orders to be placed by their team. Result Diagrams: 05/06/19 23:29 05/06/19 23:29 - EKG 1 Time of EKG reading by physician:: 23:15 EKG Read and Signed by:: Amada Woo EKG Interpretation (*Must complete 3 of following elements*): Abnormal Rate: 60 Rhythm: NSR QRS: other (prolonged QT) ST Wave: non-specific ST changes (T wave inversions in multiple leads) - XRAY 1 XRAY Study: Chest (cardiomegaly) - CONSULTS/PCP/HOSPITALIST Notification #1 *Consult/PCP/Hospitalist*: Hospitalist Time Discussed: :20 Consult Disposition: Admit Departure - Departure Date of Disposition Decision: 05/07/19 Time of Disposition Decision: 01:32 DIAGNOSIS: Chest pain, History of atrial fibrillation, Congestive heart failure Disposition: ADMITTED INPATIENT 09 Certified Medical Emergency: Emergent Condition: Stable Referrals and Follow-Ups: Westley Cavazos MD [Primary Care Provider] - - Critical Care Note This patient required my direct & personal management of CC.: No Attestation - Physician/ DONALD Attestation Patient care was provided by Advanced Practice Provider:: No The physician spent face to face time with patient:: Yes Advanced Practice Provider documentation review:: Supervising physician onsite and consulted in the evaluation and care of this patient. The physician did have a face to face encounter with the patient. This chart was documented by the indicated scribe, (Dunia Botello Scribe) and accurately reflects the services I performed and decisions made by me, Amada Woo MD, as attested by the provider's signature.
[2019-05-07] MEDS ORDERED: NITROGLYCERIN TOP ONE (02:26)
[2019-05-07] MEDS ORDERED: APRESOLINE IV ONE (02:30)
[2019-05-07] MEDS ORDERED: TYLENOL PO PRN (02:55)
[2019-05-07] MEDS ORDERED: ZOFRAN IV PRN (02:55)
[2019-05-07] MEDS ORDERED: APRESOLINE IV PRN (03:25)
[2019-05-07 04:49] LABS: AGAP 11; BUN 15 mg/dL (8-22); CALCIUM 9.2 mg/dL (8.8-10.2); CHLORIDE 105 mmol/L (98-107); CHOLESTEROL 167 mg/dL (0-200); COSMO 280; CREATININE 1.5 mg/dL (0.7-1.2); ESTIMATED GFR 55; GLUCOSE 103 mg/dL (70-104); HDL 51 mg/dL (35-55); LDL 98 mg/dL; MAGNESIUM 1.9 mg/dL (1.5-2.7); POTASSIUM 3.6 mmol/L (3.5-5.1); SODIUM 140 mmol/L (136-145); TCO2 24 mmol/L (25-35); TRIGLYCERIDES 89 mg/dL (39-160); VLDL 18 mg/dL
--- NOTE | 2019-05-07 04:49 | HISTORY AND PHYSICAL ---
PRIMARY CARE PROVIDER: Dr. Cavazos. ANTISQUEAK APPLIER: Dr. Keller. CHIEF COMPLAINT: Chest pain. HISTORY OF PRESENT ILLNESS: Mr. Cavazos is a 73-year-old male who carries a past medical history of chronic atrial fibrillation, gout, hypertension, hyperlipidemia, and minimal coronary artery disease. Last heart catheterization was in 2014. He reports he came to the ED on Sunday night with high blood pressure and headache. They did a head CT at that time that showed no evidence of acute intracranial disease, and he was sent home with diagnosis of hypertension and migraine, and was given Apresoline 10 mg p.o. t.i.d. He reports he has had a slight dull headache since that time. However, today around 5:00 in the evening, he started having intermittent sharp center of the chest pain that radiated to his back left shoulder blade as well as down his left arm. He said he has a constant dull ache that has remained in the center of his chest. He was positive for shortness of breath, but denies any nausea, vomiting, diaphoresis, dizziness, or palpitations. Nothing made the pain worse. He felt like the nitroglycerin helped it some. He does continue to have a slight headache. He also reported some abdominal pain yesterday secondary to not having a bowel movement. He feels he is constipated but no fever. No chills. He does have an occasional dry cough that is nonproductive and no urinary issues. Workup in the ED, 1st troponin was negative. He does have some renal insufficiency with a creatinine of 1.6. This appears to be at his baseline. He will be admitted for chest pain rule out. He should have 2 more sets of cardiac enzymes. We will set him up for stress test and echocardiogram in the morning. His EKG showed normal sinus rhythm. On the , the ER doctor felt that she saw some T- wave abnormalities on his repeat EKG that showed normal sinus rhythm compared with his previous. PAST MEDICAL HISTORY: Per HPI. PAST SURGICAL HISTORY: Left rotator cuff repair. Cardiac cath in 2014 that showed 35 to 40 percent right coronary disease and normal EF with no significant valvular abnormalities. SOCIAL HISTORY: The patient quit smoking back in 2014 after his workup here, but he was a pack and half per day smoker for over 50 years. No alcohol. He is a [place] . I believe he gets some care through the [facility] as well. FAMILY HISTORY: Prostate cancer. ALLERGIES: No known drug allergies. HOME MEDICATIONS: 1. Atorvastatin calcium 20 mg p.o. at bedtime. 2. Magnesium oxide 400 mg p.o. at bedtime. 3. Allopurinol 300 mg p.o. q.a.m. 4. Aspirin 81 mg p.o. daily. 5. Amiodarone 200 mg p.o. daily. 6. Eliquis 5 mg p.o. b.i.d. 7. Flonase 9.9 mL nasal daily. 8. Flomax 0.4 mg p.o. q.a.m. 9. Vitamin D3 400 units p.o. q.a.m. 10. Apresoline 10 mg p.o. t.i.d. This was just prescribed on 05/02. 11. Lasix 40 mg p.o. daily. 12. Toprol-XL 50 mg p.o. b.i.d. REVIEW OF SYSTEMS: 12 point review of systems completely negative except for those mentioned in HPI. PHYSICAL EXAMINATION: VITAL SIGNS: Temperature 98 degrees, heart rate 57, respirations 16, blood pressure 196/121, and O2 is 97% on room air. GENERAL: Mr. Cavazos is a pleasant 73-year-old male who is lying on the stretcher in no acute distress. HEENT: Atraumatic, normocephalic. PERRL. NECK: Supple. Trachea midline. CARDIOVASCULAR: S1, S2 appreciated. No murmurs, gallops, or rubs noted. RESPIRATORY: Lung sounds clear bilaterally. GI: Soft, nontender, nondistended. Positive bowel sounds 4 quadrants. EXTREMITIES: Lower extremities no edema. NEUROLOGIC: No focal deficits noted. ASSESSMENT AND PLAN: 1. Chest pain rule out. The patient's last cardiac catheterization in 2014 showed minimal coronary disease with a preserved ejection fraction. We will trend 2 more sets of cardiac enzymes, NPO, echocardiogram, stress test, lipid profile, and continue him on his home medications. We will consult Cardiology if necessary. If not, we will have him follow up with Dr. Keller his special forces weapons sergeant as an outpatient. 2. Hypertensive urgency. We will continue on his home medications, and provide him with p.r.n. Apresoline for systolic blood pressures greater than 180. 3. Atrial fibrillation. We will continue on his Toprol, amiodarone, and Eliquis. 4. On the last admit, there was some question of COPD. 5. Hyperlipidemia. Continue statin. 6. Gout. Continue allopurinol. 7. Further recommendations to follow physician evaluation, laboratory, and diagnostic data. Dictated by JOYCE Nolasco for Fco Harmon MD cc: MD Westley Balderas MD MTDD
[2019-05-07 05:31] LABS: CK-MB 3.06 ng/mL (0.0-5.0)
--- NOTE | 2019-05-07 05:41 | EKG Report ---
Test Performed on : 05/06/2019 11:13:35 PM Test Reason : cp Blood Pressure : / mmHG Vent. Rate : 060 BPM Atrial Rate : 060 BPM P-R Int : 184 ms QRS Dur : 102 ms QT Int : 466 ms P-R-T Axes : 038 -13 035 degrees QTc Int : 466 ms Normal sinus rhythm. Moderate voltage criteria for LVH, may be normal variant Nonspecific T wave abnormality Prolonged QT Abnormal ECG When compared with ECG of 02-MAY-2019 20:12, (Unconfirmed) No significant change was found Unconfirmed Result
--- NOTE | 2019-05-07 06:23 | Diag Imaging Result Doc PS360 ---
CHEST-2 VIEWS - 05/06/2019 INDICATION: cp COMPARISON: 05/02/2019 FINDINGS: The lungs are normally expanded and clear. Heart size and mediastinal contours are normal. No pneumothorax or pleural effusion. IMPRESSION: Negative exam. Electronically signed by Ignacio Rios 05/07/2019 6:21 AM
[2019-05-07] MEDS ORDERED: LEXISCAN ONE (08:34)
[2019-05-07] MEDS: ZYLOPRIM PO SCH (11:44)
[2019-05-07] MEDS: CORDARONE PO SCH (11:44)
[2019-05-07] MEDS: PRILOSEC PO SCH (11:44)
[2019-05-07] MEDS: ASPIRIN PO SCH (11:44)
[2019-05-07] MEDS: VITAMIN D PO SCH (11:44)
[2019-05-07] MEDS: FLONASE NAS SCH (11:44)
[2019-05-07] MEDS: FLOMAX PO SCH (11:44)
[2019-05-07] MEDS: NITROGLYCERIN TOP SCH ×3 (11:44→20:29)
[2019-05-07] MEDS: ELIQUIS PO SCH ×2 (11:45→20:28)
[2019-05-07] MEDS: LASIX PO SCH (11:45)
[2019-05-07] MEDS: TOPROL XL PO SCH ×2 (11:45→20:29)
[2019-05-07] MEDS: APRESOLINE PO SCH ×3 (11:45→20:29)
[2019-05-07] MEDS ORDERED: FIORICET PO ONE (17:27)
--- NOTE | 2019-05-07 19:19 | Diag Imaging Result Document ---
PROCEDURE NAME: MYOCARDIAL PERF SCAN, STR/REST - 05/07/2019 INDICATION: Chest pain. PROCEDURES PERFORMED: 1. Walking Lexiscan stress. 2. One-day stress rest myocardial perfusion imaging (rest dose 16 millicuries, stress dose 43.6 millicuries). FINDINGS: Lexiscan stress results. 1. Baseline EKG shows sinus rhythm, nonspecific ST-T changes noted in the anterior leads. 2. Lexiscan stress did not demonstrate any clear evidence of ischemic related EKG changes or significant arrhythmias. PERFUSION IMAGING RESULTS: 1. No evidence of abnormal extracardiac uptake. 2. TID ratio is 1.12. 3. Perfusion imaging does not demonstrate any clear evidence of ischemic changes. There is some suggestion of some mild inferior soft tissue attenuation artifact that appears to have preserved wall motion in the affected regions. Again no evidence of ischemic changes. 4. Normal ejection fraction of 68%. The end-diastolic volume is 123, end-systolic volume is 39. Normal wall motion. cc: Mike Au MD
[2019-05-07 19:31] LABS: CK INDEX 1.3 (0.0-2.5); CK-MB 4.22 ng/mL (0.0-5.0)
[2019-05-07] MEDS ORDERED: MAG-OX PO SCH (21:00)
[2019-05-07] MEDS ORDERED: LIPITOR PO SCH (21:00)
[2019-05-07] MEDS ORDERED: FIORICET PO PRN (21:33)
[2019-05-08] MEDS: NITROGLYCERIN TOP SCH ×2 (05:50→09:46)
[2019-05-08] MEDS: PRILOSEC PO SCH ×2 (05:51→06:24)
[2019-05-08] MEDS: CORDARONE PO SCH (09:44)
[2019-05-08] MEDS: LASIX PO SCH (09:45)
[2019-05-08] MEDS: ASPIRIN PO SCH (09:45)
[2019-05-08] MEDS: ZYLOPRIM PO SCH (09:45)
[2019-05-08] MEDS: VITAMIN D PO SCH (09:45)
[2019-05-08] MEDS: ELIQUIS PO SCH (09:45)
[2019-05-08] MEDS: APRESOLINE PO SCH (09:45)
[2019-05-08] MEDS: FLOMAX PO SCH (09:45)
[2019-05-08] MEDS: TOPROL XL PO SCH (09:49)
[2019-05-08] MEDS: FLONASE NAS SCH (09:51)
[2019-05-08 12:17] VITALS: BP 167/72
--- NOTE | 2019-05-08 13:20 | ECHO REPORT ---
ORDER DATE: 05/07/2019 INTERPRETING PHYSICIAN: Dr. Saeed Casanova ECHOCARDIOGRAPHIC MEASUREMENTS: 1. Interventricular septum 1.2. 2. Left ventricular posterior wall 1.3. 3. Diastolic diameter 4.3. 4. Left atrium 3.6. 5. Aorta 3.3. SUMMARY OF THE 2-DIMENSIONAL IMAGIN. Aortic valve leaflets are trileaflet. 2. Pulmonic valve was normal. 3. Tricuspid valve was normal. 4. Mitral valve was normal. 5. Normal left ventricular cavity size. Estimated ejection fraction of 60%. There is mild left ventricular hypertrophy. 6. There is mild mitral regurgitation. There is mild left atrial enlargement. 7. Mild tricuspid regurgitation. Peak velocity across the tricuspid valve was 2.5 meters/second. 8. Peak velocity across the aortic valve less than 2 meters/second by Doppler studies. There is no aortic stenosis or regurgitation. 9. There is no pericardial effusion or obvious intracardiac mass or thrombus seen. cc: Saeed Casanova MD
[2019-05-08] MEDS ORDERED: APRESOLINE PO SCH (15:00)
[2019-05-08] MEDS ORDERED: ISORDIL PO SCH (17:00)
--- NOTE | 2019-05-09 14:25 | DISCHARGE SUMMARY ---
ADMISSION DATE: 05/07/2019 DISCHARGE DATE: 05/08/2019 DISCHARGE DISPOSITION: Home. DISCHARGE CONDITION: Hemodynamically stable. Mr. Bolden blood pressure has been better controlled now than on admission. He denies anymore chest pain or shortness of breath. His stress test and echocardiogram were largely unremarkable. He was advised to have followup with his doctor, activities concierge, and regular physician for blood pressure management. DISCHARGE DIAGNOSES: 1. Chest pain ruled out obstructive coronary artery disease. 2. Hypertensive emergency. OTHER DIAGNOSES: 1. History of essential hypertension. 2. History of chronic atrial fibrillation. 3. Remote history of smoking which he quit in 2014. 4. Hyperlipidemia. 5. Gout. 6. History of mild coronary artery disease as per coronary angiography in year 2014. 7. Past history of chronic tobacco abuse, about 1.5 pack for about 50 years, which he quit in 2014. 8. Chronic kidney disease stage 3. DISCHARGE MEDICATIONS: 1. Atorvastatin 20 mg at nighttime. 2. Magnesium 400 mg at nighttime. 3. Allopurinol 300 mg in the morning time. 4. Aspirin 81 mg daily. 5. Amiodarone 200 mg daily. 6. Eliquis 5 mg b.i.d. 7. Fluticasone nasal spray 1 spray daily. 8. Tamsulosin 0.4 mg in the morning time. 9. Vitamin D3 400 units in the morning time. 10. Hydralazine 100 mg t.i.d. 11. Isordil 10 mg t.i.d., 90 tablets have been prescribed. 12. Furosemide 40 mg daily. 13. Metoprolol succinate extended release 50 mg b.i.d. VITAL SIGNS: Vitals at the time of discharge, temperature 98 degrees, pulse 54, respiratory rate 18, blood pressure 167/72, saturating 97% room air. PHYSICAL EXAMINATION: General: Not in acute distress. HEENT: Oral cavity is moist. Lungs: Air entry bilaterally equal. No wheeze, rhonchi, or crackles. Heart: S1, S2 normal. No murmur, rub, or gallop. Abdomen: Soft, nontender. Extremities: No lower extremity edema. Neurologic: He is alert and oriented x3. SIGNIFICANT LABS DURING HOSPITAL ADMISSION AND DISCHARGE: 1. WBC 7.3, hemoglobin 13.9, platelet 222,000. 2. INR 1.01. 3. Potassium 3.6. 4. BUN 15, creatinine 1.5. 5. His high-sensitivity troponin was showing flat trend of 19. 6. Lipid panel had LDL of 98. 7. No microbiological data. IMAGING DURING HOSPITAL ADMISSION: 1. Chest x-ray on presentation did not have acute cardiopulmonary process. 2. Myocardial perfusion scan had ejection fraction of 68% without any clear evidence of ischemic changes. There was some suggestion of mild inferior soft tissue attenuation artifact that appears to have preserved wall motion in the affected region without any evidence of ischemic changes. 3. Echocardiogram had ejection fraction of 60% with mild left ventricle hypertrophy. HOSPITAL COURSE SUMMARY: Mr. Cavazos is a 73-year-old -[place] man with past medical history of chronic atrial fibrillation, essential hypertension, cardiac catheterization in 2015, who had initially came in 72 hours prior to current admission for chief complaints of headache and elevated blood pressure. At that time, head CT did not have any evidence of intracranial disease and he was sent home, however on the day of current presentation, he started having intermittent sharp central chest pain radiating to back and shoulder blade and radiating towards his left arm. It was constant, dull, associated with mild shortness of breath, though he did not have any nausea, vomiting, or diaphoresis. In the emergency room, he was found to have hypertension with systolic blood pressure of 203/76 and his EKG had suggested moderate voltage criteria for left ventricular hypertrophy and nonspecific T-wave abnormality. His troponin was negative, and he was requested to have admission for his chest pain. He was admitted and he underwent echocardiogram and stress test the next day, which was unremarkable. It was thought that his chest pain episode was related to his hypertensive emergency, and isosorbide dinitrate was added to his home medication regimen of metoprolol and hydralazine. At the time of discharge, his blood pressure was better controlled. He was advised to have followup with activities concierge and regular physician. TIME SPENT WITH PATIENT: More than 30 minutes time was spent discharging this patient. I counseled the patient and his at bedside about the importance of managing blood pressure. I also informed them about the negative stress test results and more than 95% predictive value of the stress test results. I also counseled him about having a followup with activities concierge and regular physician. All of the questions satisfactorily answered. cc: MD OFELIA Fields
== END 2019-05-08 14:39 | disposition home or self-care (01) ==
LOC: ED 22:52 → EDIPHOLD 22:52 → SUATTDRO 05-07 02:58 → 4N 05-07 07:38
PROVIDERS: ATTEND Internal Medicine

== ENCOUNTER 2019-05-18 12:22 | Inpatient (IN) ==
[2019-05-18] MEDS ORDERED: ASPIRIN PO ONE (12:36)
[2019-05-18] MEDS ORDERED: NS 1,000 ML IV ONE ×2 (12:44→17:01)
[2019-05-18 12:46] LABS: BASO# 0.06 X1000 (0.0-0.2); BASO% 0.8 % (0.0-0.8); EOS# 0.14 X1000 (0.0-0.7); HEMATOCRIT 41.4 % (42.0-52.0); HEMOGLOBIN 13.9 g/dL (14.0-18.0); IMM GRAN# 0.02 X1000 (0.0-0.04); IMM GRAN% 0.3 % (0.0-0.5); LYMPH# 2.29 X1000 (1.2-3.4); LYMPH% 32.2 % (20.5-51.1); MCH 29.6 PG (27-31); MCHC 33.6 g/dL (33-37); MCV 88.3 FL (81-99); MONO# 0.63 X1000 (0.11-0.59); MONO% 8.8 % (1.7-9.3); MPV 9.8 FL (7.4-10.4); NEUT# 3.98 X1000 (1.4-6.5); NEUT% 55.9 % (42.2-75.2); PLT 237 X1000 (130-400); RBC 4.69 XMIL (4.7-6.1); RDW 14.4 % (11.5-14.5); WBC 7.12 X1000 (4.8-10.8)
[2019-05-18] MEDS ORDERED: ATROPINE IV ONE (12:46)
--- NOTE | 2019-05-18 12:46 | ED EKG INTERP ---
This chart was entered by Jalil Gongora Scribe, acting as scribe for Mic Trejo MD. EKG Interpretation - EKG Time of EKG reading by physician:: 12:24 EKG Read and Signed by:: Mic Trejo EKG Interpretation (*Must complete 3 of following elements*): Abnormal Rate: 42 Rhythm: junctional bradycardia [place]: normal QRS: normal [place] Interval: normal ST Wave: normal Prior EKG Comparison: changes noted (Changed from sinus rhythm 05/06/19) Comments: nonspecific T wave abnormality Attestation - Physician/ DONALD Attestation Patient care was provided by Advanced Practice Provider:: No The physician spent face to face time with patient:: Yes Advanced Practice Provider documentation review:: Supervising physician onsite and consulted in the evaluation and care of this patient. The physician did have a face to face encounter with the patient. This chart was documented by the indicated scribe, (Jalil Gongora Scribe) and accurately reflects the services I performed and decisions made by Neil mendez Kent A., MD, as attested by the provider's signature.
[2019-05-18] MEDS ORDERED: CALCIUM CHLORIDE SYRINGE IV ONE (12:49)
[2019-05-18] MEDS ORDERED: ATROPINE SYRINGE IV ONE ×3 (13:00→14:12)
[2019-05-18] MEDS ORDERED: CALCIUM CHLORIDE 1 GM in NS 100 ML IV ONE (13:00)
[2019-05-18 13:05] LABS: ALB/GLOB RATIO 1.5; ALBUMIN 4.1 g/dL (3.5-5.0); CALCIUM 9.3 mg/dL (8.8-10.2); CREATININE 1.8 mg/dL (0.7-1.2); POTASSIUM 3.9 mmol/L (3.5-5.1); TOTAL BILIRUBIN 0.78 mg/dL (0.20-1.00); TOTAL PROTEIN 6.8 g/dL (6.3-8.3)
[2019-05-18 13:16] LABS: INR 1.24; PROTIME 15.8 Seconds (11.0-16.0)
[2019-05-18 13:17] LABS: PTT 37.5 Seconds (22.3-41.8)
--- NOTE | 2019-05-18 14:37 | Diag Imaging Result Doc PS360 ---
EXAM: CHEST-PORTABLE INDICATION: weakness TECHNIQUE: One view COMPARISON: 05/06/2019 FINDINGS: The lungs are grossly clear. There is no discrete pleural fluid collection or pneumothorax. The cardiomediastinal silhouette and central vasculature are grossly unremarkable. IMPRESSION: No evidence of acute pathology by plain radiograph. Electronically signed by Twin Kraft 05/18/2019 2:35 PM
[2019-05-18] MEDS ORDERED: DOPAMINE 800 MG/D5W 800 MG/500 ML IV.SOLN IV SCH (15:30)
--- NOTE | 2019-05-18 17:44 | HISTORY AND PHYSICAL ---
HISTORY OF PRESENT ILLNESS: The patient came in with shortness of breath and weakness. He is a cardiac patient. He has atrial fibrillation, which I think has been fairly difficult to control. He is on multiple agents as such. He left here about nine days ago. He was feeling mostly this time dizzy, not so much more chest pain but dizzy. His presenting complaints showed a heart rate that is in the 30s. It was read as junctional but when I saw him, it looks sinus on the monitor. It has been going on for about 24 hours. There has not been a big change except since his last admission his atrial fibrillation. He has been on amiodarone 200. He is on metoprolol 50 twice a day extended release. Reportedly, he has been on verapamil, but I do not see that in his discharge medications. Apparently, it says he was started on it today. I cannot confirm that he was on verapamil, but in any case again workup revealed symptomatic bradycardia, which is felt to be sinus, possibly a junctional rhythm. Chest x-ray is clear. The rest of the lab work was pretty unremarkable. He has got some renal insufficiency, a little bit above baseline, but he was admitted for symptomatic bradycardia. We have instituted dopamine. He has received 1 mg of atropine and has gone from the 30s to the low 40s. PAST MEDICAL HISTORY: 1. Atrial fibrillation. 2. Hypertension. 3. Gout. 4. CAD with some minimal blockage. 5. Hyperlipidemia. There is no diabetes. PAST SURGICAL HISTORY: He has had a left rotator cuff repair. SOCIAL HISTORY: He quit smoking, but he was at least a 50 pack year history smoking prior to that. No alcohol. [place] . ALLERGIES: No known drug allergies. FAMILY HISTORY: Prostate cancer in father. REVIEW OF SYSTEMS: Otherwise negative times a 10 point review of systems. MEDICATIONS: Allopurinol 300 at bedtime, aspirin 81 daily, Lipitor 40 daily, magnesium oxide 400 daily, vitamin D3 400 daily, amiodarone 200 daily, apixaban 5 b.i.d., Lasix 20 daily, multivitamin daily, Flomax 0.4 daily, verapamil 240 daily (I cannot confirm that was taken), hydralazine 100 t.i.d., Isordil 10 t.i.d., and Toprol-XL 50 b.i.d. The hydralazine and Isordil were added last admission, but again should not have a negative chronotropic effect on his heart. PHYSICAL EXAM: VITAL SIGNS: Blood pressure is 110/63, heart rate is 39, respiratory rate of 13, temperature was 98.3 degrees. GENERAL: A well-developed male in no acute distress. HEENT: Head exam was normocephalic atraumatic. Eye exam with pupils equal, round, reactive to light. Extraocular movements were intact. Ear, nose, and throat exam: He had moist mucous membranes. NECK: Supple. CARDIOVASCULAR: Was slow S1, S2 but regular. PULMONARY: Bilateral breath sounds, diminished at the bases. GI: Soft, nontender, nondistended. Bowel sounds are positive. NEUROLOGIC: Nonfocal. MUSCULOSKELETAL: Exam was 4/5 in all four extremities. Peripheral edema in lower extremities was trace. LABORATORY DATA: White count 7, hemoglobin and hematocrit 13 and 41, platelets 237,000. BUN and creatinine of 18 and 1.8. AST and ALT of 43 and 54. ProBNP of only 307. TSH 4.65, but his total T4 was 11.4. ASSESSMENT: 1. This is a 73-year-old male with history of atrial fibrillation, paroxysmal, who now has symptomatic bradycardia, but he is on multiple medications which may be inducing it although no new changes. We will hold his amiodarone and his Toprol. Confirm about his verapamil. He responded somewhat to atropine. We will initiate dopamine at low dose. He may require transcutaneous pacemaking but at this point he is not unstable. We will get a Cardiology opinion. Do serial enzymes and follow. They have been notified about his case. He had an echocardiogram 05/07/2019 with an ejection fraction of 60%. We will defer to them if that needs to be repeated. 2. Hypertension is fairly stable. If anything, he is on the low side. We will probably hold his medications until his heart rate stabilizes. 3. Acute on chronic renal insufficiency. He has an intact ejection fraction, so I may go ahead and put him on a little bit of fluid just because his blood pressure is a little bit on the low side and we will continue to follow. Repeat labs tomorrow. Avoid nephrotoxic drugs. Critical care patient with symptomatic bradycardia, 35 minutes and institution of IV dopamine. cc: Alli Hargrove MD Cardiology [facility]
[2019-05-18] MEDS ORDERED: TYLENOL PO PRN (20:07)
[2019-05-18] MEDS: ASPIRIN PO SCH (20:17)
[2019-05-18] MEDS ORDERED: TYLENOL ONE ×2 (20:17→20:18)
[2019-05-18] MEDS: ZYLOPRIM PO SCH (20:56)
[2019-05-18] MEDS: VITAMIN D PO SCH (20:56)
[2019-05-18] MEDS: LIPITOR PO SCH (20:56)
[2019-05-19] MEDS ORDERED: NORCO-5 PO ONE (00:20)
[2019-05-19 04:47] LABS: BASO# 0.03 X1000 (0.0-0.2); BASO% 0.3 % (0.0-0.8); EOS# 0.06 X1000 (0.0-0.7); EOS% 0.6 % (0.0-10.0); HEMATOCRIT 38.4 % (42.0-52.0); HEMOGLOBIN 13.1 g/dL (14.0-18.0); IMM GRAN# 0.05 X1000 (0.0-0.04); IMM GRAN% 0.5 % (0.0-0.5); LYMPH% 17.8 % (20.5-51.1); MCH 30.3 PG (27-31); MCHC 34.1 g/dL (33-37); MCV 88.7 FL (81-99); MONO# 1.46 X1000 (0.11-0.59); MONO% 15.3 % (1.7-9.3); NEUT# 6.24 X1000 (1.4-6.5); NEUT% 65.5 % (42.2-75.2); PLT 206 X1000 (130-400); RBC 4.33 XMIL (4.7-6.1); RDW 14.1 % (11.5-14.5); WBC 9.54 X1000 (4.8-10.8)
[2019-05-19 05:04] LABS: CALCIUM 8.8 mg/dL (8.8-10.2); CREATININE 1.7 mg/dL (0.7-1.2); MAGNESIUM 1.8 mg/dL (1.5-2.7); POTASSIUM 3.8 mmol/L (3.5-5.1)
--- NOTE | 2019-05-19 07:36 | PROVIDER DOCUMENTATION ---
This chart was entered by Jalil Gongora Scribe, acting as scribe for Mic Trejo MD. HPI-Chest Pain <Frankie Deal - Last Filed: 05/18/19 14:56> - General Source: patient - History of Present Illness-CP Location: reports: other (CP) Chest Pain Radiation: reports: no radiation Quality of Pain: reports: pressure Severity in ED: mild Onset/Duration: 1 week ago Timing: still present Context/Activities at Onset: reports: none Modifying Factors: improves with: nothing Associated Symptoms: reports: shortness of breath. denies: fever/chills, nausea, vomiting Aspirin Treatment Today: unknown Similar Symptoms Previously?: No Recently Seen Here or By Another Healthcare Provider: Yes (dr.stanley rubio/ dean marte) <Mic Trejo - Last Filed: 05/18/19 15:35> - General Chief Complaint: Chest Pain Stated Complaint: SOB,LIGHHEADED,BLURRED VISION Time Seen by Provider: 05/18/19 12:45 Allergies/Adverse Reactions: Patient Allergies Allergy/AdvReac Type Severity Reaction Status Date / Time No Known Allergies Allergy Verified 03/28/17 13:50 Home Medications: Home Medication List Medication Instructions Recorded Confirmed Last Taken Type Allopurinol 300 mg PO QHS 01/19/17 05/18/19 05/17/19 History Apixaban [Eliquis] 5 mg PO BID 01/19/17 05/18/19 05/18/19 History Cholecalciferol (Vitamin D3) 400 unit PO QHS 01/19/17 05/18/19 05/17/19 History [Vitamin D3] Magnesium Oxide 400 mg PO QHS 01/19/17 05/18/19 05/17/19 History Tamsulosin HCl 0.4 mg PO QAM 01/19/17 05/18/19 05/18/19 History Metoprolol Succinate E.r. [Toprol 50 mg PO BID #60 tablet 01/21/17 05/18/19 05/18/19 Rx Xl] Amiodarone [Cordarone] 200 mg PO DAILY 03/28/17 05/18/19 05/18/19 History Aspirin 81 mg PO QHS 03/28/17 05/18/19 05/18/19 History Fluticasone Propionate [Flonase 9.9 ml NS DAILY 03/28/17 05/07/19 05/18/19 History Allergy Relief] Hydralazine [Apresoline] 100 mg PO TID #90 tab 05/08/19 05/18/19 05/18/19 Rx Isosorbide Dinitrate [Isordil] 10 mg PO TID #90 tab 05/08/19 05/18/19 05/18/19 Rx ATORVAstatin [Lipitor] 1 tab PO QHS 05/18/19 05/18/19 05/17/19 History Furosemide 1.5 tab PO DAILY 05/18/19 05/18/19 05/18/19 History Multivitamin [Multivitamins] 1 tab PO DAILY 05/18/19 05/18/19 05/18/19 History Verapamil HCl [Verapamil ER] 1 tab PO DAILY 05/18/19 05/18/19 Unknown History - History of Present Illness-CP Nature of Presenting Problem: 73 yom presents to the ed w/ c/o Cp/Lightheaded/SOB onset for week. pt states Verapamil ER 240 was increased recently by Dr. Cavazos. pt states "pressure in chest." pt c/o sob "cant catch good breath." (Mic Trejo) Review of Systems - Adult - REVIEW OF SYSTEMS - ADULT Constitutional: denies: chills, fever Eyes: reports: no symptoms reported Ears, Nose, Mouth & Throat: reports: no symptoms reported Cardiovascular: reports: see HPI, chest pain. denies: heart murmur, palpitations Respiratory: reports: see HPI, shortness of breath. denies: cough, wheezing Gastrointestinal: denies: abdominal pain, diarrhea, nausea, vomiting Genitourinary: reports: no symptoms reported Musculoskeletal: reports: no symptoms reported Integumentary: reports: no symptoms reported Neurological: reports: see HPI, other (lightheaded) Psychiatric: reports: no symptoms reported Endocrine: reports: no symptoms reported Hematologic/Lymphatic: reports: no symptoms reported Allergic/Immunologic: reports: no symptoms reported All Other Systems: Reviewed and Negative <Mic Trejo - Last Filed: 05/18/19 15:35> Past History - Adult - PAST MEDICAL HISTORY-ADULT Review of Records: reports: Old Records Reviewed, Nursing Assessment Review, Medications Reviewed, Social history reviewed & non-contributory. Major Childhood Illnesses: reports: denies history Cardiovascular: reports: HTN, hyperlipidemia Respiratory: reports: other (chronic sinus infections) Gastrointestinal: reports: ulcer Obstetrical/Gynecological: reports: denies history Genitourinary: reports: denies history Musculoskeletal: reports: denies history Neurological: reports: denies history Psychiatric: reports: denies history Endocrine/Immune: reports: denies history Other Conditions: reports: denies history - PRIOR SURGERIES/PROCEDURES Surgical/Procedure History: reports: orthopedic (extremity) (rotator cuff) - IMMUNIZATION STATUS Childhood Immunizations: See Nurse Assessment Flu Vaccine: See Nurse Assessment - FAMILY HISTORY Family History: reviewed, not pertinent - SOCIAL HISTORY Smoking: quit greater than 1 year, cigarettes Substance Use: denies <Mic Trejo - Last Filed: 05/18/19 15:35> Physical Exam-General - PHYSICAL EXAM-ADULT Initial Vital Signs Reviewed: Yes - CONSTITUTIONAL General Appearance: appears well, alert, mild distress - CARDIOVASCULAR Cardiovascular: bradycardia - SKIN Integumentary: normal color - PSYCHIATRIC Psych/Mental Status: normal mood/affect, normal thought content, normal thought process, oriented x 3 <Mic Trejo - Last Filed: 05/18/19 15:35> - HEART Score HEART Score: Age: > or = 65 Years <Mic Trejo - Last Filed: 05/18/19 15:35> Progress - PLAN OF CARE/RESULTS Result Diagrams: 05/18/19 12:34 05/18/19 12:34 - REASSESSMENT Reassessment #1 Status: unchanged (patient with symptomatic bradycardia will admit cardilogy consult) <Frankie Deal - Last Filed: 05/18/19 14:56> - PLAN OF CARE/RESULTS Result Diagrams: 05/18/19 12:34 05/18/19 12:34 - REASSESSMENT Reassessment #1 Status: unchanged Reassessment #2 Time Reassessed: 14:49 Status: other (waiting for hospitalists to call back) - XRAY 1 XRAY Study: Chest Impression: See EMR Report ( EXAM: CHEST-PORTABLE INDICATION: weakness TECHNIQUE: One view COMPARISON: 05/06/2019 FINDINGS: The lungs are grossly clear. There is no discrete pleural fluid collection or pneumothorax. The cardiomediastinal silhouette and central vasculature are grossly unremarkable. IMPRESSION: No evidence of acute pathology by plain radiograph. Electronically signed by Twin Kraft 05/18/2019 2:35 PM 05/18/19 1435 Interpreting Physician: Twin Kraft MD Dictated Date/Time: 05/18/19 1434 cc: Mic Trejo MD; Westley Cavazos MD) - CONSULTS/PCP/HOSPITALIST Notification #1 *Consult/PCP/Hospitalist*: consult w/ dr. de jesus Time Discussed: 14:38 (wants to see ekg's) #2 Consult: consult w/ hospitalists GROUP THERAPY COUNSELOR Time Discussed: 14:49 Consult Disposition: Admit <Mic Trejo - Last Filed: 05/18/19 15:35> - PLAN OF CARE/RESULTS Progress/Plan/Lab Results: Vital Signs - 8 hr 05/18/19 12:31 05/18/19 13:51 05/18/19 13:55 Temperature 98.3 F Pulse Rate 41 L 34 L 42 L Respiratory Rate 14 13 12 Blood Pressure 101/57 98/58 117/66 O2 Sat by Pulse Oximetry 96 98 97 05/18/19 14:15 Temperature Pulse Rate 39 L Respiratory Rate 13 Blood Pressure 110/63 O2 Sat by Pulse Oximetry 96 Laboratory Results - last 24 hr 05/18/19 05/18/19 05/18/19 12:34 12:34 12:34 WBC 7.12 RBC 4.69 L Hgb 13.9 L Hct 41.4 L MCV 88.3 MCH 29.6 MCHC 33.6 RDW Std Deviation 14.4 Plt Count 237 MPV 9.8 Immature Gran % (Auto) 0.3 Neut % (Auto) 55.9 Lymph % (Auto) 32.2 [place] % (Auto) 8.8 Eos % (Auto) 2.0 Baso % (Auto) 0.8 Immature Gran # (Auto) 0.02 Neut # (Auto) 3.98 Lymph # (Auto) 2.29 [place] # (Auto) 0.63 H Eos # (Auto) 0.14 Baso # (Auto) 0.06 PT INR PTT (Actin FS) Sodium 141 Potassium 3.9 Chloride 105 Carbon Dioxide 24 L Anion Gap 12 BUN 18 Creatinine 1.8 H Estimated GFR/1.73 m2 45 BUN/Creatinine Ratio 10 Glucose 130 H Calculated Osmolality 285 Calcium 9.3 Magnesium Total Bilirubin 0.78 AST 43 H ALT 54 H Alkaline Phosphatase 89 Creatine Kinase 197 Troponin T High Sens [id number] Pept 307 H Total Protein 6.8 Albumin 4.1 Globulin 2.7 Albumin/Globulin Ratio 1.5 05/18/19 05/18/19 05/18/19 12:34 12:34 12:34 WBC RBC Hgb Hct MCV MCH MCHC RDW Std Deviation Plt Count MPV Immature Gran % (Auto) Neut % (Auto) Lymph % (Auto) [place] % (Auto) Eos % (Auto) Baso % (Auto) Immature Gran # (Auto) Neut # (Auto) Lymph # (Auto) [place] # (Auto) Eos # (Auto) Baso # (Auto) PT 15.8 INR 1.24 PTT (Actin FS) 37.5 Sodium Potassium Chloride Carbon Dioxide Anion Gap BUN Creatinine Estimated GFR/1.73 m2 BUN/Creatinine Ratio Glucose Calculated Osmolality Calcium Magnesium 2.2 Total Bilirubin AST ALT Alkaline Phosphatase Creatine Kinase Troponin T High Sens 27 H [id number] Pept Total Protein Albumin Globulin Albumin/Globulin Ratio Orders Category Date Time Status Cardiac Monitoring DIRECTED Care 05/18/19 12:36 Active Nursing- MD Consult Request ROUTINE Care 05/18/19 15:03 Active Oxygen Therapy- ED Nursing DIRECTED Care 05/18/19 12:36 Active Saline Loc NOW Care 05/18/19 12:36 Active MD [Physician/Provider Consults] Routine Cons 05/18/19 15:03 Ordered CHEST-PORTABLE [RAD] Stat Exams 05/18/19 12:44 Completed CBC WITH ELECTRONIC DIFF [HEME] Stat Lab 05/18/19 12:34 Completed CK PROFILE [SP CHEM] Stat Lab 05/18/19 12:34 Completed COMPREHENSIVE METABOLIC PANEL [CHEM] Stat Lab 05/18/19 12:34 Completed MAGNESIUM [CHEM] Stat Lab 05/18/19 12:34 Completed PRO B-NATRIURETIC PEPTIDE Stat Lab 05/18/19 12:34 Completed PROTIME WITH INR [COAG] Stat Lab 05/18/19 12:34 Completed PTT [COAG] Stat Lab 05/18/19 12:34 Completed T4 Stat Lab 05/18/19 12:34 Received TROPONIN T HIGH SENSITIVITY Stat Lab 05/18/19 12:34 Completed TSH Stat Lab 05/18/19 12:34 Received 0.9% Sodium Chloride Inj [Ns] 1,000 ml Med 05/18/19 12:44 Discontinued IV 999 mls/hr Aspirin Med 05/18/19 12:36 Discontinued 325 mg PO NOW ONE Atropine Syringe Med 05/18/19 13:00 Discontinued 0.5 mg IV NOW ONE Atropine Syringe Med 05/18/19 14:12 Discontinued 0.5 mg IV NOW ONE Calcium Chloride 1 gm Med 05/18/19 13:00 Discontinued 0.9% Sodium Chloride Inj [Ns] 100 ml IV ONCE Dopamine 800 mg/D5w Med 05/18/19 15:30 Active 800 mg in 500 ml IV As Directed mls/hr CP/SOB/Palp >45 yrs of Age Stat Oth 05/18/19 12:36 Ordered EKG [EKG] Stat Ther 05/18/19 12:36 Ordered Transfer/Admit Order [TRANSFER] Routine Transfer 05/18/19 15:20 Ordered Departure - Departure Time of Disposition Decision: 14:24 Certified Medical Emergency: Emergent - Critical Care Note This patient required my direct & personal management of CC.: No <Frankie Deal - Last Filed: 05/18/19 14:56> - Departure Date of Disposition Decision: 05/18/19 Certified Medical Emergency: Emergent <Mic Trejo - Last Filed: 05/18/19 15:35> - Departure DIAGNOSIS: Symptomatic bradycardia, Chest pain Disposition: ACUTE [facility] 02 Condition: Stable Referrals and Follow-Ups: Westley Cavazos MD [Primary Care Provider] - Attestation - Physician/ DONALD Attestation Patient care was provided by Advanced Practice Provider:: No The physician spent face to face time with patient:: Yes Advanced Practice Provider documentation review:: Supervising physician onsite and consulted in the evaluation and care of this patient. The physician did have a face to face encounter with the patient. <Mic Trejo - Last Filed: 05/18/19 15:35> This chart was documented by the indicated scribe, (Jalil Gongora Scribe) and accurately reflects the services I performed and decisions made by Neil mendez Kent A., MD, as attested by the provider's signature.
--- NOTE | 2019-05-19 07:39 | EKG Report ---
Test Performed on : 05/18/2019 12:53:48 PM Test Reason : CP Blood Pressure : / mmHG Vent. Rate : 094 BPM Atrial Rate : 094 BPM P-R Int : 120 ms QRS Dur : 080 ms QT Int : 316 ms P-R-T Axes : 051 032 046 degrees QTc Int : 395 ms Normal sinus rhythm. Normal ECG When compared with ECG of 06-MAY-2019 23:13, (Unconfirmed) Vent. rate has increased BY 34 BPM QRS duration has decreased Non-specific change in ST segment in Anterior leads T wave inversion no longer evident in Anterior leads QT has shortened Unconfirmed Result
[2019-05-19] MEDS: FLOMAX PO SCH (09:56)
[2019-05-19] MEDS: THERA M PLUS PO SCH (09:57)
--- NOTE | 2019-05-19 10:43 | CARDIOLOGY CONSULTATION ---
DATE: 05/19/2019 HISTORY OF PRESENT ILLNESS: Mr. Damien Cavazos is a 73-year-old, gentleman, who has history of atrial fibrillation in the past, and has been under control with sinus rhythm. He was here 9 days back. He comes with complaints of feeling dizzy. No chest pain per se. At home, he noticed his heart rate to be low; came in with a heart rate in the 30s, was noted to be in sinus rhythm, and given his low heart rate, was started on dopamine and was given atropine. Heart rate improved from the 30s in sinus rhythm to 40s, and this was discontinued early this morning. I do not have the strips from when he was noted to be in the 30s. He is on multiple medications, which he has been taking. He recently saw his family physician in [place], who had increased the dosage of medications. He is on amiodarone 200 mg, metoprolol 50 mg b.i.d., in addition to verapamil 240. There are no palpitations. There is no debra syncope. REVIEW OF SYSTEMS: A 14-point review of systems was done. GI: There is no history of nausea, vomiting, diarrhea. There is no history of hematemesis or melena. Central Nervous System: No focal weakness to suggest a CVA or TIA. Genitourinary: There is no dysuria or hematuria. PAST MEDICAL HISTORY: 1. Paroxysmal atrial fibrillation, in sinus rhythm. 2. Hypertension. 3. Gout. 4. Minimal coronary artery disease by cardiac catheterization in 2014. 5. History of pulmonary edema in 2017 when he had atrial fibrillation and rapid ventricular rate. 6. Hypertensive cardiovascular disease. 7. Personal history of tobacco abuse. 8. History of renal insufficiency. SOCIAL HISTORY: He quit smoking, but he has smoked for at least [id number]. FAMILY HISTORY: Prostate cancer in father. ALLERGIES: Not known to be allergic to any medications. HOME MEDICATIONS: Include verapamil 240, atorvastatin 40, Lasix 20 mg 1-1/2 tablets a day, hydralazine 100 mg p.o. t.i.d., isosorbide dinitrate 10 p.o. t.i.d., aspirin 81 mg a day, amiodarone 200 mg a day, metoprolol 50 mg b.i.d., tamsulosin, allopurinol, Eliquis 5 mg b.i.d., magnesium oxide. PHYSICAL EXAMINATION: Vital Signs: Blood pressure was 152/71. Heart: First and second heart sounds were heard. There was no S3 gallop. Respiratory: Normal air entry. There are no crepitations or rhonchi. Abdomen: Soft, nontender. There was no guarding or rigidity. Bowel sounds were heard. Central Nervous System: Alert. He was moving all 4 extremities. Extremities: No pedal edema. HEENT: Atraumatic, normocephalic. Pupils were equal and reacting to light. LABORATORY DATA: Sodium 140, potassium 3.8, BUN 18, creatinine 1.7. Cardiac enzymes negative. WBC 9.54, hemoglobin 13.1, hematocrit 38.4, platelet count of 206,000. ASSESSMENT AND PLAN: Mr. Damien Cavazos is a 73-year-old, gentleman, who has history of paroxysmal atrial fibrillation, hypertension, is admitted with feeling dizzy with low heart rates. No debra syncope. He is currently in sinus rhythm, heart rate 50 to 60 beats per minute. He was transiently started on dopamine when he was noted to have a heart rate of 30s in the emergency room, and also received Atropine. RECOMMENDATIONS: 1. As far as atrial fibrillation is concerned, he is in sinus rhythm. Would recommend continuing with the amiodarone and Eliquis for stroke prophylaxis. 2. Hypercholesterolemia. Continue with Lipitor. 3. Anticoagulation therapy. Continue with Eliquis as planned. 4. As far as hypertension is concerned, he has been on hydralazine 100 mg 3 times a day. In addition, he takes metoprolol 50 b.i.d., in addition to Cardizem CD 240 mg a day. Would recommend stopping the Cardizem, put him on Norvasc, and continue with beta blockers at 50 b.i.d. I will make changes to his medications gradually. I do not want to stop the beta- blockers and calcium channel blockers, verapamil, at the present time altogether. 5. He has minimal coronary artery disease. No chest pain. I have not made any changes. 6. He has gout, for which he takes allopurinol. Would recommend continuing with the same. Thank you for the consult. Will follow hospital course. cc: Saeed Casanova MD
[2019-05-19] MEDS: ISORDIL PO SCH ×2 (13:00→16:23)
--- NOTE | 2019-05-19 14:42 | PROGRESS NOTE ---
DATE: 05/19/2019 SUBJECTIVE: He feels better today. No shortness of breath. OBJECTIVE: Vital signs: His blood pressure is 168/95, heart rate of 47, respiratory rate of 14, temperature was 98.4 degrees. His heart rate remains between 40 to 50. Saturations are 96% on 2 L. Cardiovascular: Regular rate and rhythm. Pulmonary: Bilateral breath sounds. Clear to auscultation. GI: Soft, nontender, nondistended. Bowel sounds are positive. LABORATORY: White count is 9, hemoglobin and hematocrit 13 and 38, platelets of 206,000. Creatinine 1.7. ASSESSMENT AND PLAN: 1. Atrial fibrillation with slow response. Dr. Casanova's note says we are going to continue amiodarone and we are holding metoprolol and Cardizem, I think, and verapamil. 2. Dyslipidemia. We will continue to follow. DISPOSITION: Pending clinical status. Appreciate Cardiology input. We will monitor potassium and magnesium levels. cc: Alli Hargrove MD
[2019-05-19] MEDS: APRESOLINE PO SCH ×2 (14:48→21:16)
[2019-05-19] MEDS ORDERED: MAG-OX PO SCH (21:00)
[2019-05-19] MEDS: ASPIRIN PO SCH (21:16)
[2019-05-19] MEDS: VITAMIN D PO SCH (21:16)
[2019-05-19] MEDS: LIPITOR PO SCH (21:16)
[2019-05-19] MEDS: ZYLOPRIM PO SCH (21:16)
[2019-05-19] MEDS: ELIQUIS PO SCH (21:16)
[2019-05-20 06:14] LABS: BASO# 0.03 X1000 (0.0-0.2); BASO% 0.5 % (0.0-0.8); EOS# 0.22 X1000 (0.0-0.7); EOS% 3.4 % (0.0-10.0); HEMATOCRIT 39.8 % (42.0-52.0); HEMOGLOBIN 13.1 g/dL (14.0-18.0); IMM GRAN# 0.03 X1000 (0.0-0.04); IMM GRAN% 0.5 % (0.0-0.5); LYMPH# 2.27 X1000 (1.2-3.4); LYMPH% 34.8 % (20.5-51.1); MCH 29.4 PG (27-31); MCHC 32.9 g/dL (33-37); MCV 89.4 FL (81-99); MONO# 0.69 X1000 (0.11-0.59); MONO% 10.6 % (1.7-9.3); MPV 10.2 FL (7.4-10.4); NEUT# 3.29 X1000 (1.4-6.5); NEUT% 50.2 % (42.2-75.2); PLT 201 X1000 (130-400); RBC 4.45 XMIL (4.7-6.1); RDW 14.2 % (11.5-14.5); WBC 6.53 X1000 (4.8-10.8)
[2019-05-20 06:42] LABS: CALCIUM 9.2 mg/dL (8.8-10.2); CREATININE 1.6 mg/dL (0.7-1.2); POTASSIUM 3.7 mmol/L (3.5-5.1)
[2019-05-20] MEDS: APRESOLINE PO SCH ×2 (08:15→13:58)
[2019-05-20] MEDS: THERA M PLUS PO SCH (08:15)
[2019-05-20] MEDS: ELIQUIS PO SCH (08:15)
[2019-05-20] MEDS: FLOMAX PO SCH (08:16)
[2019-05-20] MEDS: ISORDIL PO SCH ×3 (08:17→16:14)
[2019-05-20] MEDS ORDERED: FLONASE NAS SCH (09:00)
[2019-05-20] MEDS ORDERED: LASIX PO SCH (09:00)
[2019-05-20 12:06] VITALS: BP 179/70
--- NOTE | 2019-05-21 09:48 | DISCHARGE SUMMARY ---
ADMISSION DATE: 05/18/2019 DISCHARGE DATE: 05/20/2019 DISCHARGE DIAGNOSES: 1. Bradycardia, likely related to medications or atrial fibrillation with slow ventricular response. 2. Dyslipidemia. CONSULTATIONS: Cardiology. PROCEDURES: None. HISTORY AND HOSPITAL COURSE: The patient presented initially with a heart rate in the 30s. He is on amiodarone, metoprolol, verapamil or Cardizem, and came in with significant bradycardia. He had an echocardiogram done on 05/07/2019 with an intact EF of 60%. He was monitored. Dr. Casanova made some recommendations, continue amiodarone, stop Cardizem, and decrease his beta-blockers. Overall, he has improved. We will continue Eliquis as well. His heart rates are maintained in the 50s to 60s now. Granted he has not been on any medication, although presumably the amiodarone is most likely not in his system so we will decrease his Toprol to 25 daily and continue his other medications, allopurinol 300 every night at bedtime, aspirin 81 every night at bedtime, Lipitor 40 every night at bedtime, magnesium oxide 400 every night at bedtime, amiodarone 200 daily, Eliquis 5 b.i.d., fluticasone daily, Lasix 30 daily, multivitamin daily, Flomax 0.4 daily, verapamil we will stop, hydralazine 100 t.i.d., Isordil 10 t.i.d., and Toprol will be 25 daily. He is to follow up with Dr. Casanova in 2 to 4 weeks, and we will continue to monitor him closely. He looks good. He is euvolemic. He is not hypoxic. There is no peripheral edema. The patient is stable. TIME SPENT: This is a 32 minute discharge. cc: MD Saeed Shaw MD Alexis R. Penot, MD
== END 2019-05-20 17:45 | disposition home or self-care (01) | DRG 310 ==
LOC: ED 12:22 → EDIPHOLD 15:31 → 2N 05-19 14:41
PROVIDERS: ATTEND Internal Medicine

== ENCOUNTER 2019-05-20 20:27 | Inpatient (IN) ==
[2019-05-20] MEDS ORDERED: CARDIZEM IV ONE ×2 (20:35→20:51)
--- NOTE | 2019-05-20 20:42 | PROVIDER DOCUMENTATION ---
HPI-Chest Pain - General Chief Complaint: Chest Pain Stated Complaint: afib w/rvr Time Seen by Provider: 05/20/19 21:45 Source: patient Allergies/Adverse Reactions: Patient Allergies Allergy/AdvReac Type Severity Reaction Status Date / Time No Known Allergies Allergy Verified 05/20/19 20:42 Home Medications: Home Medication List Medication Instructions Recorded Confirmed Last Taken Type Allopurinol 300 mg PO QHS 01/19/17 05/20/19 05/20/19 09:00 History Apixaban [Eliquis] 5 mg PO BID 01/19/17 05/20/19 05/20/19 09:00 History Cholecalciferol (Vitamin D3) 400 unit PO QHS 01/19/17 05/20/19 05/20/19 09:00 History [Vitamin D3] Magnesium Oxide 400 mg PO QHS 01/19/17 05/20/19 05/20/19 09:00 History Tamsulosin HCl 0.4 mg PO QAM 01/19/17 05/20/19 05/20/19 09:00 History Amiodarone [Cordarone] 200 mg PO DAILY 03/28/17 05/20/19 05/20/19 09:00 History Aspirin 81 mg PO QHS 03/28/17 05/20/19 05/20/19 09:00 History Fluticasone Propionate [Flonase 9.9 ml NS DAILY 03/28/17 05/20/19 05/20/19 09:00 History Allergy Relief] Hydralazine [Apresoline] 100 mg PO TID #90 tab 05/08/19 05/20/19 05/20/19 09:00 Rx ATORVAstatin [Lipitor] 1 tab PO QHS 05/18/19 05/20/19 05/20/19 09:00 History Furosemide 1.5 tab PO DAILY 05/18/19 05/20/19 05/20/19 09:00 History Multivitamin [Multivitamins] 1 tab PO DAILY 05/18/19 05/20/19 05/20/19 09:00 Hi story Metoprolol Succinate E.r. [Toprol 25 mg PO DAILY #30 tab 05/20/19 05/20/19 05/20/19 09:00 Rx Xl] - History of Present Illness-CP Nature of Presenting Problem: Patient was recently admitted here at [facility] for uncontrolled HTN and a new diagnosis of A fib with RVR. While he was at home today he felt his heart start fluttering and began feeling dizzy/ At that point he called 911. He denies any exacerbating or alleviating factors. Review of Systems - Adult - REVIEW OF SYSTEMS - ADULT Constitutional: reports: fatique Eyes: reports: blurred vision Ears, Nose, Mouth & Throat: reports: no symptoms reported Cardiovascular: reports: irregular heart rate, palpitations Respiratory: reports: chronic cough, dyspnea on exertion, shortness of breath Gastrointestinal: reports: no symptoms reported Genitourinary: reports: no symptoms reported Musculoskeletal: reports: no symptoms reported Integumentary: reports: no symptoms reported Neurological: reports: other (lightheadedness) Psychiatric: reports: no symptoms reported Endocrine: reports: no symptoms reported Hematologic/Lymphatic: reports: no symptoms reported Allergic/Immunologic: reports: no symptoms reported All Other Systems: Reviewed and Negative Past History - Adult - PAST MEDICAL HISTORY-ADULT Review of Records: reports: Old Records Reviewed, Nursing Assessment Review, Medications Reviewed, Social history reviewed & non-contributory. Major Childhood Illnesses: reports: denies history Cardiovascular: reports: HTN, hyperlipidemia Respiratory: reports: other (chronic sinus infections) Gastrointestinal: reports: ulcer Obstetrical/Gynecological: reports: denies history Genitourinary: reports: denies history Musculoskeletal: reports: denies history Neurological: reports: denies history Psychiatric: reports: denies history Endocrine/Immune: reports: denies history Other Conditions: reports: denies history - PRIOR SURGERIES/PROCEDURES Surgical/Procedure History: reports: orthopedic (extremity) (rotator cuff) - IMMUNIZATION STATUS Childhood Immunizations: See Nurse Assessment Flu Vaccine: See Nurse Assessment - FAMILY HISTORY Family History: reviewed, not pertinent - SOCIAL HISTORY Smoking: cigarettes Substance Use: none/never Alcohol Use Frequency: occasionally Physical Exam-General - PHYSICAL EXAM-ADULT Initial Vital Signs Reviewed: Yes (Atrial fibrillation) - CONSTITUTIONAL General Appearance: alert, moderate distress - EYES Eyes: negative: EOM palsy - HEAD, EARS, NOSE, MOUTH & THROAT HENMT: normocephalic/atraumatic. negative: moist mucous membranes (dry MM) - NECK Neck: non-tender, supple - RESPIRATORY Respiratory: no pleuratic chest pain, no respiratory distress, no accessory muscle use, wheezing (lower lobes bilaterally). negative: crackles, rales, rhonchi - CARDIOVASCULAR Cardiovascular: tachycardia, irregularly irregular - GASTROINTESTINAL (ABDOMEN) Abdominal Exam: non tender, soft, no organomegaly - MUSCULOSKELETAL Extremity: normal range of motion, swelling (non-pitting edema bilaterally). negative: calf tenderness - SKIN Integumentary: negative: normal turgor (poor skin turgor) - PSYCHIATRIC Psych/Mental Status: normal mood/affect, normal thought content, normal thought process, oriented x 3 - HEART Score HEART Score: History: Highly Suspicious HEART Score: ECG: Non-Specific Repolarization Disturbance/LBBB/PM HEART Score: Age: > or = 65 Years HEART Score: Risk Factors for Atherosclerotic Disease: > or = 3 Risk Factors or History of Atherosclerotic Disease HEART Score: Troponin: < or = Normal Limit (moderate risk) Total HEART Score:: 7 Progress - PLAN OF CARE/RESULTS Progress/Plan/Lab Results: Vital Signs - 8 hr 05/20/19 20:27 05/20/19 21:15 05/20/19 21:20 Temperature 97.9 F Pulse Rate 134 H 118 H 123 H Respiratory Rate 16 14 13 Blood Pressure 192/127 152/93 131/99 O2 Sat by Pulse Oximetry 99 95 97 05/20/19 21:25 05/20/19 21:27 05/20/19 21:30 Temperature Pulse Rate 129 H 130 H 120 H Respiratory Rate 14 12 15 Blood Pressure 133/96 133/96 169/130 O2 Sat by Pulse Oximetry 95 97 96 05/20/19 21:35 05/20/19 21:40 05/20/19 21:45 Temperature Pulse Rate 147 H 139 H 109 H Respiratory Rate 17 16 14 Blood Pressure 134/90 143/103 139/90 O2 Sat by Pulse Oximetry 95 96 95 05/20/19 21:50 05/20/19 21:55 05/20/19 22:00 Temperature Pulse Rate 119 H 121 H 133 H Respiratory Rate 14 15 19 Blood Pressure 137/99 156/103 147/92 O2 Sat by Pulse Oximetry 94 L 95 97 05/20/19 22:10 05/20/19 22:15 05/20/19 22:25 Temperature Pulse Rate 117 H 129 H 109 H Respiratory Rate 12 13 12 Blood Pressure 134/98 126/90 159/95 O2 Sat by Pulse Oximetry 100 96 95 05/20/19 22:30 05/20/19 22:35 05/20/19 22:40 Temperature Pulse Rate 89 116 H 83 Respiratory Rate 15 17 15 Blood Pressure 151/96 156/98 152/95 O2 Sat by Pulse Oximetry 96 96 96 05/20/19 22:45 05/20/19 22:50 05/20/19 23:00 Temperature Pulse Rate 83 84 82 Respiratory Rate 16 16 16 Blood Pressure 148/92 152/93 151/94 O2 Sat by Pulse Oximetry 96 95 97 05/20/19 23:20 Temperature Pulse Rate 122 H Respiratory Rate 14 Blood Pressure 144/102 O2 Sat by Pulse Oximetry 95 Laboratory Results - last 24 hr 05/20/19 05/20/19 05/20/19 20:37 20:37 20:37 WBC 9.41 RBC 4.99 Hgb 14.7 Hct 43.7 MCV 87.6 MCH 29.5 MCHC 33.6 RDW Std Deviation 14.1 Plt Count 209 MPV 10.1 Immature Gran % (Auto) 0.3 Neut % (Auto) 51.2 Lymph % (Auto) 35.9 Surry % (Auto) 10.0 H Eos % (Auto) 2.0 Baso % (Auto) 0.6 Immature Gran # (Auto) 0.03 Neut # (Auto) 4.81 Lymph # (Auto) 3.38 Surry # (Auto) 0.94 H Eos # (Auto) 0.19 Baso # (Auto) 0.06 PT INR PTT (Actin FS) Sodium 142 Potassium 3.7 Chloride 105 Carbon Dioxide 20 L Anion Gap 17 BUN 17 Creatinine 1.6 H Estimated GFR/1.73 m2 51 BUN/Creatinine Ratio 11 Glucose 144 H Calculated Osmolality 287 Calcium 9.4 Total Bilirubin 0.67 AST 42 H ALT 50 H Alkaline Phosphatase 94 Creatine Kinase 218 H Creatine Kinase Index 1.5 CK-MB (CK-2) 3.20 Troponin T High Sens Fuv-[id number]-Qrvgpxmtgci Pept 195 Total Protein 7.4 Albumin 4.3 Globulin 3.1 Albumin/Globulin Ratio 1.4 05/20/19 05/20/19 20:37 20:37 WBC RBC Hgb Hct MCV MCH MCHC RDW Std Deviation Plt Count MPV Immature Gran % (Auto) Neut % (Auto) Lymph % (Auto) Surry % (Auto) Eos % (Auto) Baso % (Auto) Immature Gran # (Auto) Neut # (Auto) Lymph # (Auto) Surry # (Auto) Eos # (Auto) Baso # (Auto) PT 13.4 INR 1.01 PTT (Actin FS) 36.8 Sodium Potassium Chloride Carbon Dioxide Anion Gap BUN Creatinine Estimated GFR/1.73 m2 BUN/Creatinine Ratio Glucose Calculated Osmolality Calcium Total Bilirubin AST ALT Alkaline Phosphatase Creatine Kinase Creatine Kinase Index CK-MB (CK-2) Troponin T High Sens 25 H Fwq-G-Aozmzjeiroy Pept Total Protein Albumin Globulin Albumin/Globulin Ratio Orders Category Date Time Status Cardiac Monitoring DIRECTED Care 05/20/19 20:48 Active Oxygen Therapy- ED Nursing DIRECTED Care 05/20/19 20:48 Active Saline Loc NOW Care 05/20/19 20:48 Active CHEST-PORTABLE [RAD] Stat Exams 05/20/19 20:48 Completed CBC WITH ELECTRONIC DIFF [HEME] Stat Lab 05/20/19 20:37 Completed CK PROFILE [SP CHEM] Stat Lab 05/20/19 20:37 Completed COMPREHENSIVE METABOLIC PANEL [CHEM] Stat Lab 05/20/19 20:37 Completed PRO B-NATRIURETIC PEPTIDE Stat Lab 05/20/19 20:37 Completed PROTIME WITH INR [COAG] Stat Lab 05/20/19 20:37 Completed PTT [COAG] Stat Lab 05/20/19 20:37 Completed TROPONIN T HIGH SENSITIVITY Stat Lab 05/20/19 20:37 Completed Diltiazem 100 mg/Ns [Cardizem 100 mg/Ns] Med 05/20/19 21:00 Active 100 mg in 100 ml IV As Directed mls/hr Diltiazem [Cardizem] Med 05/20/19 20:35 Discontinued 10 mg IV NOW ONE Diltiazem [Cardizem] Med 05/20/19 20:51 Discontinued 10 mg IV NOW ONE CP/SOB/Palp >45 yrs of Age Stat Oth 05/20/19 20:47 Ordered EKG [EKG] Stat Ther 05/20/19 20:28 Ordered Result Diagrams: 05/20/19 20:37 05/20/19 20:37 - XRAY 1 XRAY Study: Chest Impression: Normal (EXAM: CHEST-PORTABLE HISTORY: HEART FLUTTERING TECHNIQUE: Single view COMPARISON: 05/18/2019 FINDINGS: The lungs are well expanded. The heart is mildly enlarged. The vessels are not distended. There are no infiltrates. No effusion identified. IMPRESSION: Stable chest Electronically signed by Henry Pope 05/20/2019 9:15 PM 05/20/192114 Interpreting Physician: Henry Pope MD Dictated Date/Time: 05/20/192113 cc: Mukul Isaac DO; Westley Cavazos MD) - CONSULTS/PCP/HOSPITALIST Notification #1 *Consult/PCP/Hospitalist*: s/w Dr. Harmon, agreed to accept the patient Time Discussed: 23:33 (Admit ICU) Reason/Comments: Atrial fibrillation with RVR Consult Disposition: Admit Departure - Departure Date of Disposition Decision: 05/20/19 Time of Disposition Decision: 23:21 (Admit ICU) DIAGNOSIS: Atrial fibrillation with rapid ventricular response, Nicotine dependence, cigarettes, uncomplicated Chest pain Qualifiers: Chest pain type: unspecified Qualified Code(s): R07.9 - Chest pain, unspecified Hypertension Qualifiers: Hypertension type: essential hypertension Qualified Code(s): I10 - Essential (primary) hypertension Disposition: ADMITTED INPATIENT 09 Certified Medical Emergency: Emergent Condition: Critical Referrals and Follow-Ups: Westley Cavazos MD [Primary Care Provider] - - Critical Care Note This patient required my direct & personal management of CC.: Yes Total Time (mins): 70 Critical Care Statement: This patient required my direct personal management to treat or rule out processes, the absence of which, could potentiallly result in sudden, clinically significant life or limb threatening deterioration. Attestation - Physician/ DONALD Attestation Patient care was provided by Advanced Practice Provider:: No The physician spent face to face time with patient:: Yes Advanced Practice Provider documentation review:: Supervising physician onsite and consulted in the evaluation and care of this patient. The physician did have a face to face encounter with the patient.
[2019-05-20 20:58] LABS: BASO# 0.06 X1000 (0.0-0.2); BASO% 0.6 % (0.0-0.8); EOS# 0.19 X1000 (0.0-0.7); HEMATOCRIT 43.7 % (42.0-52.0); HEMOGLOBIN 14.7 g/dL (14.0-18.0); IMM GRAN# 0.03 X1000 (0.0-0.04); IMM GRAN% 0.3 % (0.0-0.5); LYMPH# 3.38 X1000 (1.2-3.4); LYMPH% 35.9 % (20.5-51.1); MCH 29.5 PG (27-31); MCHC 33.6 g/dL (33-37); MCV 87.6 FL (81-99); MONO# 0.94 X1000 (0.11-0.59); MPV 10.1 FL (7.4-10.4); NEUT# 4.81 X1000 (1.4-6.5); NEUT% 51.2 % (42.2-75.2); PLT 209 X1000 (130-400); RBC 4.99 XMIL (4.7-6.1); RDW 14.1 % (11.5-14.5); WBC 9.41 X1000 (4.8-10.8)
[2019-05-20] MEDS ORDERED: CARDIZEM 100 MG/NS 100 MG/100 ML IVPB IV SCH (21:00)
[2019-05-20 21:08] LABS: INR 1.01; PROTIME 13.4 Seconds (11.0-16.0)
[2019-05-20 21:09] LABS: PTT 36.8 Seconds (22.3-41.8)
--- NOTE | 2019-05-20 21:17 | Diag Imaging Result Doc PS360 ---
EXAM: CHEST-PORTABLE HISTORY: HEART FLUTTERING TECHNIQUE: Single view COMPARISON: 05/18/2019 FINDINGS: The lungs are well expanded. The heart is mildly enlarged. The vessels are not distended. There are no infiltrates. No effusion identified. IMPRESSION: Stable chest Electronically signed by Henry Pope 05/20/2019 9:15 PM
[2019-05-20 21:35] LABS: ALB/GLOB RATIO 1.4; ALBUMIN 4.3 g/dL (3.5-5.0); CALCIUM 9.4 mg/dL (8.8-10.2); CREATININE 1.6 mg/dL (0.7-1.2); POTASSIUM 3.7 mmol/L (3.5-5.1); TOTAL BILIRUBIN 0.67 mg/dL (0.20-1.00); TOTAL PROTEIN 7.4 g/dL (6.3-8.3)
[2019-05-20 21:55] LABS: CK INDEX 1.5 (0.0-2.5); CK-MB 3.2 ng/mL (0.0-5.0)
--- NOTE | 2019-05-20 23:11 | ED EKG INTERP ---
This chart was entered by Christina Awan Scribe, acting as scribe for Mukul Isaac DO. EKG Interpretation - EKG Time of EKG reading by physician:: 20:35 EKG Read and Signed by:: Mukul Isaac EKG Interpretation (*Must complete 3 of following elements*): Abnormal (non specific st and t wave abnormality) Rate: 143 Rhythm: afib with RVR [place]: normal QRS: normal Attestation - Physician/ DONALD Attestation Patient care was provided by Advanced Practice Provider:: No The physician spent face to face time with patient:: Yes Advanced Practice Provider documentation review:: Supervising physician onsite and consulted in the evaluation and care of this patient. The physician did have a face to face encounter with the patient. This chart was documented by the indicated scribe, (Christina Awan, Ryan) and accurately reflects the services I performed and decisions made by , Mukul Isaac DO, as attested by the provider's signature.
--- NOTE | 2019-05-21 00:21 | EKG Report ---
Test Performed on : 05/20/2019 8:35:52 PM Test Reason : elevated hr Blood Pressure : / mmHG Vent. Rate : 143 BPM Atrial Rate : 136 BPM P-R Int : 000 ms QRS Dur : 096 ms QT Int : 306 ms P-R-T Axes : 000 -03 115 degrees QTc Int : 472 ms Atrial fibrillation. with rapid ventricular response. Nonspecific ST and T wave abnormality Abnormal ECG When compared with ECG of 18-MAY-2019 12:53, (Unconfirmed) Atrial fibrillation. has replaced Sinus rhythm. Vent. rate has increased BY [address] now depressed in Inferior leads ST now depressed in Anterolateral leads Nonspecific T wave abnormality now evident in Inferior leads Nonspecific T wave abnormality now evident in Anterolateral leads Unconfirmed Result
[2019-05-21] MEDS ORDERED: NS 1,000 ML IV SCH (07:15)
--- NOTE | 2019-05-21 07:38 | HISTORY AND PHYSICAL ---
CHIEF COMPLAINT: Palpitations. HISTORY OF PRESENT ILLNESS: Mr. Damien Cavazos is a 73-year-old male who has a history of atrial fibrillation, hypertension, gout, coronary artery disease, hyperlipidemia. The patient indicates that he was recently discharged from the hospital on 05/19/2019. During that hospital stay, the patient was managed for atrial fibrillation. The patient now presents back to the hospital because of palpitations, along with shortness of breath and chest tightness. On arrival to the ED, he was found to be in atrial fibrillation with a rapid ventricular rate. The patient was placed on Cardizem infusion. The patient reverted back to normal sinus rhythm in the ER. He has now been admitted to the floor for further management. PAST MEDICAL HISTORY: Atrial fibrillation, hypertension, gout, coronary disease with minimal blockage, hyperlipidemia. PAST SURGICAL HISTORY: He has had cervical disk surgery as well as left rotator cuff surgery. SOCIAL HISTORY: No apparent history of cigarette smoking, alcohol, or drug use. ALLERGIES: No known drug allergies. FAMILY HISTORY: Positive for cancer. REVIEW OF SYSTEMS: Constitutional: No fever. DYE AND CHEMICAL COORDINATOR: Has headaches. Eyes: Blurred vision. ENT: No sinus problem. Respiratory: Has cough. GI: Has constipation. No nausea or vomiting. No diarrhea. Dermatology: No skin lesions. Hematology: No bleeding problems. Musculoskeletal: Has joint pains. Endocrinology: No diabetes or thyroid disease. Psychiatry: Has PTSD. PHYSICAL EXAMINATION: VITAL SIGNS: Temperature 98.2 degrees, pulse 59, respiratory rate 20, blood pressure 160/76, oxygen saturation is 98%. HEENT: Atraumatic, normocephalic. He is anicteric. Extraocular movements intact. No oral lesions noted. NECK: No lymphadenopathy or thyromegaly. CARDIOVASCULAR: S1, S2. RESPIRATORY: Has evidence of good air entry bilaterally. ABDOMEN: Soft, nontender. No masses felt. EXTREMITIES: No evidence of edema. CENTRAL NERVOUS SYSTEM: No obvious focal deficits noted. IMAGING AND LABORATORY DATA: WBC is 9.41, hematocrit 23.7, with a platelet count of 209,000. INR is 1.01. Sodium is 142, potassium 3.7, chloride is 105, bicarb 20, BUN is 17, creatinine is 1.6. AST is 42, ALT is 50. Chest x-ray: No significant abnormalities. EKG: Atrial fibrillation with rapid ventricular rate. ASSESSMENT AND PLAN: 1. Atrial fibrillation with rapid ventricular rate. The patient's heart rate is now within normal limits and currently in rhythm. Maintain the patient on a rate-controlling agent. Continue amiodarone as well as apixaban. Check serial cardiac enzymes as well as thyroid function test. Obtain Cardiology consult. 2. Hypertension. Optimize blood pressure control. 3. Hyperlipidemia. Continue lipid-lowering agent. 4. Renal insufficiency. Maintain the patient on intravenous fluids. Follow up on renal function. Avoid nephrotoxic agents. 5. Abnormal liver function tests. Check hepatitis panel as well as abdominal ultrasound. 6. Deep vein thrombosis prophylaxis. The patient is on apixaban. 7. Gastrointestinal prophylaxis. Proton pump inhibitor. cc: Fco Harmon MD
[2019-05-21] MEDS ORDERED: TOPROL XL PO SCH (09:00)
[2019-05-21] MEDS ORDERED: CORDARONE PO SCH (09:00)
--- NOTE | 2019-05-21 09:12 | EKG Report ---
Test Performed on : 05/21/2019 03:15:07 AM Test Reason : ED. NO EKG ORDER FOR MUSE Blood Pressure : / mmHG Vent. Rate : 061 BPM Atrial Rate : 061 BPM P-R Int : 184 ms QRS Dur : 092 ms QT Int : 442 ms P-R-T Axes : 056 001 032 degrees QTc Int : 444 ms Normal sinus rhythm. T wave abnormality, consider anterior ischemia Abnormal ECG When compared with ECG of 20-MAY-2019 20:35, (Unconfirmed) Sinus rhythm. has replaced Atrial fibrillation. Vent. rate has decreased BY [address] no longer depressed in Anterolateral leads Nonspecific T wave abnormality, improved in Inferior leads T wave inversion now evident in Anterior leads Nonspecific T wave abnormality, improved in Lateral leads Unconfirmed Result
[2019-05-21] MEDS: APRESOLINE PO SCH ×3 (12:03→20:55)
[2019-05-21] MEDS: CENTRUM SILVER PO SCH (12:09)
[2019-05-21] MEDS: ELIQUIS PO SCH ×2 (12:09→20:55)
[2019-05-21] MEDS: FLOMAX PO SCH (12:09)
--- NOTE | 2019-05-21 13:14 | PROGRESS NOTE ---
DATE: 05/21/2019 SUBJECTIVE: No acute events overnight. His heart rhythm had become normal sinus, and diltiazem drip was stopped. He is on his oral regimen. He denies any chest pain, shortness of breath, or palpitation anymore. I had a detailed discussion with him and his family at bedside about causes of atrial fibrillation, symptoms, management, bradycardia, pacemaker, and answered all of their questions. OBJECTIVE: Vital Signs: Currently, temperature 98 degrees, pulse 61, respiratory rate 20, blood pressure 160/74, saturating 98% room air. HEENT: Oral cavity is moist. Lungs: Air entry bilaterally equal. No wheeze, rhonchi, crackles. Heart: S1, S2 normal. No murmur, no gallop. Abdomen: Soft, nontender. Extremities: No lower extremity edema. Neurologic: He is alert and oriented x3. LABORATORY DATA: Troponin was slightly increasing from 35 to 48, and now it has started coming down to 39. His free T4 was slightly elevated, not significantly. MICROBIOLOGY/IMAGING: No microbiological or imaging data. DIAGNOSTIC DATA: Latest EKG suggests normal sinus rhythm. ASSESSMENT AND PLAN: 1. Paroxysmal atrial fibrillation as well as episodes of bradycardia. The patient was admitted and discharged on 05/20/2019 for bradycardia, and his atrial fibrillation medication were adjusted. I will continue him on amiodarone 200 mg daily and metoprolol 25 mg daily. Appreciate further Cardiology recommendation. I will continue him on Eliquis as well. 2. Constipation. Start the patient on bowel regimen. I counseled him about possible triggers of atrial fibrillation, which could include any infectious process in the body, anxiety, recreational substance abuse, excessive alcohol consumption, excessive coffee consumption in general, and answered all of his questions. cc: Sarbjit Leiva MD
[2019-05-21] MEDS: DULCOLAX PR SCH ×2 (13:39→20:55)
[2019-05-21] MEDS: MIRALAX PO SCH ×2 (13:39→20:56)
--- NOTE | 2019-05-21 15:29 | CONSULTATION ---
DATE OF CONSULTATION: 05/21/2019 IMPRESSIONS: 1. Paroxysmal atrial fibrillation with recurrent episode of atrial fibrillation despite amiodarone 200 mg p.o. daily. Patient also had elevated heart rate despite current metoprolol. Patient mildly symptomatic with palpitations and mild lightheadedness with standing. He has spontaneously converted back to sinus rhythm. 2. Hypertension. 3. Hyperlipidemia. 4. Chronic kidney disease with current estimated GFR 51 and creatinine 1.6. 5. Mild coronary atherosclerosis by previous coronary angiography in 2014 with last stress myocardial perfusion study January 2017 negative for evidence of inducible myocardial ischemia. Patient continues without angina. RECOMMENDATIONS: 1. Gently increase amiodarone to 300 mg daily. 2. Increase metoprolol to least 25 mg p.o. twice daily with patient instructed to take an extra dose of metoprolol in the event of recurrent tachy palpitations. 3. Reasonable for patient to be discharged to home given spontaneous conversion back to sinus rhythm. 4. Continue long-term anticoagulation with Eliquis as tolerated. HISTORY: This 73-year-old male with past history of paroxysmal atrial fibrillation, hypertension, mild coronary atherosclerosis, hyperlipidemia, and chronic kidney disease was admitted last night with recurrent atrial fibrillation with rapid ventricular rate. He was just recently hospitalized here for the same diagnosis and discharged. He relates abrupt onset of tachy palpitations with some associated lightheadedness when he stood. There was no chest pain, nor shortness of breath. He was found to be in atrial fibrillation with rapid ventricular rate and admitted to telemetry. He was given some IV Cardizem initially. He spontaneously converted back to sinus rhythm. This morning he is without complaint. His regular skin tanner Dr. Eric Keller. PAST MEDICAL HISTORY: 1. Paroxysmal atrial fibrillation. 2. Mild coronary atherosclerosis. 3. Hypertension. 4. Hyperlipidemia. 5. Gout. 6. Chronic kidney disease with current estimated GFR 51 with creatinine of 1.6. PAST SURGICAL HISTORY: Includes cervical disk surgery as well as left rotator cuff repair. ALLERGIES: He has no known drug allergies. MEDICATIONS PRIOR TO ADMISSION: As listed. SOCIAL HISTORY: He is retired from previous work as a cable contractor, installing cable. He does not smoke, nor use alcohol. FAMILY HISTORY: Negative for premature coronary disease. REVIEW OF SYSTEMS: Pulmonary: Noncontributory beyond history of present illness. Gastrointestinal: Noncontributory beyond history of present illness. Constitutional: Noncontributory beyond history of present illness. Remainder of review of systems noncontributory beyond history present illness with 14 total systems reviewed. PHYSICAL EXAMINATION: General: Reveals a pleasant, older male in no distress. Vital signs: Blood pressure 151/79, heart rate 75 and regular, oxygen saturation 96% on room air. HEENT: Extraocular muscles appear intact. Mucous membranes are moist. Neck: Supple without jugular venous distention. There are no carotid bruits. Chest: Clear to auscultation. Cardiac Exam: Reveals a regular rate and rhythm without appreciable murmur or gallop. Abdomen: Soft. Bowel sounds are normal. Extremities: Without edema. Neurologic: Reveals him to be alert and fully oriented. Speech is fluent. He moves all 4 extremities equally well. Skin: Warm dry. Psychiatric: Reveals mood to be appropriate. PERTINENT DATA: Twelve lead EKG obtained this morning demonstrates normal sinus rhythm and nonspecific T-wave abnormality. LABORATORY DATA: Includes white blood cell count 9.4, hematocrit 43.7, hemoglobin 14.7, platelet count 209,000. Sodium 142, potassium 3.7, chloride 105, carbon dioxide 20, BUN 17, creatinine 1.6, glucose 144, AST 42, ALT 50. Initial troponin T high sensitivity 25 with follow-up troponin T high sensitivities 48, and 39. Free T4 1.73. cc: Vini Richardson MD
[2019-05-21 19:07] LABS: CK INDEX 1.2 (0.0-2.5); CK-MB 2.61 ng/mL (0.0-5.0)
[2019-05-21] MEDS: TOPROL XL PO SCH (20:56)
[2019-05-21] MEDS ORDERED: ASPIRIN PO SCH (21:00)
[2019-05-21] MEDS ORDERED: ZYLOPRIM PO SCH (21:00)
[2019-05-21] MEDS ORDERED: VITAMIN D PO SCH (21:00)
[2019-05-21] MEDS ORDERED: LIPITOR PO SCH (21:00)
[2019-05-21] MEDS ORDERED: MAG-OX PO SCH (21:00)
[2019-05-22 05:34] LABS: ALB/GLOB RATIO 1.1; ALBUMIN 3.5 g/dL (3.5-5.0); CALCIUM 9.1 mg/dL (8.8-10.2); CREATININE 1.7 mg/dL (0.7-1.2); POTASSIUM 4.1 mmol/L (3.5-5.1); TOTAL BILIRUBIN 0.89 mg/dL (0.20-1.00); TOTAL PROTEIN 6.6 g/dL (6.3-8.3)
[2019-05-22] MEDS ORDERED: CORDARONE PO SCH (09:00)
[2019-05-22] MEDS: MIRALAX PO SCH (09:30)
[2019-05-22] MEDS: DULCOLAX PR SCH (09:30)
[2019-05-22] MEDS: APRESOLINE PO SCH (09:31)
[2019-05-22] MEDS: FLOMAX PO SCH (09:31)
[2019-05-22] MEDS: ELIQUIS PO SCH (09:32)
[2019-05-22] MEDS: TOPROL XL PO SCH (09:32)
[2019-05-22] MEDS: CENTRUM SILVER PO SCH (09:32)
[2019-05-22 11:50] VITALS: BP 163/69
--- NOTE | 2019-05-22 15:56 | DISCHARGE SUMMARY ---
ADMISSION DATE: 05/21/2019 DISCHARGE DATE: 05/22/2019 ADDENDUM REPORT DISCHARGE SUMMARY: Mr. Cavazos did have a heart rate in the 40s with heart rate being 45, although he was symptomatic. I had a discussion with the cardiology team considering he was admitted 1 week before the current admission for symptomatic bradycardia requiring dopamine. I was informed by the cardiology team that , however, at that time his total metoprolol dose was 100 mg. This time around, we had decreased it to 50 mg and Cardiology thought that it was probably appropriate for him to be discharged. I still monitored patient for another 6 to 8 hours and his heart rate remained in the high 40s, upper 50s without any symptoms. He was not hypotensive, so it was decided to discharge him. The patient should follow up with Dr. Keller in his office. cc: Sarbjit Leiva MD MTDD
--- NOTE | 2019-05-22 23:14 | DISCHARGE SUMMARY ---
ADMISSION DATE: 05/21/2019 DISCHARGE DATE: 05/22/2019 DISCHARGE DISPOSITION: Home. DISCHARGE CONDITION: Hemodynamically stable. Mr. Cavazos has been in normal sinus rhythm. He has had episodes of bradycardia with heart rate as low as 47 beats per minute, especially at nighttime when he was asleep. He did not have any symptoms. He has been able to come out of bed, walk in the hallway without any symptoms. He was advised about medication changes including increase in dose of amiodarone as well as frequency of metoprolol and he was advised to have this discussion and make sure his routine sprue cutting press operator, Dr. Keller, and regular physician are aware of it. CONSULTATION DURING HOSPITAL ADMISSION: Dr. Vini Richardson, Cardiology. DISCHARGE DIAGNOSES: 1. Paroxysmal atrial fibrillation with rapid ventricular response on presentation. 2. Recent admission in May 2019 first week for symptomatic bradycardia. 3. Constipation. 4. Sinus bradycardia OTHER DIAGNOSES: 1. History of paroxysmal atrial fibrillation. 2. History of essential hypertension. 3. History of gout. 4. History of minimally obstructive coronary artery disease managed medically. 5. History of hyperlipidemia. DISCHARGE MEDICATIONS: 1. Amiodarone 300 mg daily. The dose was increased from his routine dose of 200 mg. 2. Metoprolol succinate 25 mg b.i.d. The dose was increased from 25 mg once a day. 3. Apixaban 5 mg b.i.d. 4. Allopurinol 300 mg at nighttime. 5. Aspirin 81 mg at nighttime. 6. Atorvastatin 40 mg at nighttime. 7. Magnesium oxide 400 mg at nighttime. 8. Vitamin D3 400 units at nighttime. 9. Fluticasone nasal spray for allergies. 10. Furosemide 30 mg daily. 11. Multivitamin 1 tablet daily. 12. Tamsulosin 0.4 mg in the morning time. 13. Hydralazine 100 mg t.i.d. 14. Amiodarone 300 mg daily. VITALS AT TIME OF DISCHARGE: Temperature 97.8 degrees, pulse 50, respiratory rate blood pressure 178/71. He is saturating 100% room air. PHYSICAL EXAMINATION: Mr. Cavazos is not in acute distress. Oral cavity is moist. Lungs: Air entry bilaterally equal. No wheeze, no rhonchi, no crackles. Cardiovascular: S1, S2 normal. No murmur or gallop. Abdomen: Soft, nontender. Extremity: No lower extremity edema. He is alert and oriented x3. LABORATORIES AT THE TIME OF DISCHARGE: WBC 14.7, platelets 209,000, BUN 16, creatinine 1.7 suggestive of chronic kidney disease, stage III. HOSPITAL COURSE SUMMARY: Mr. Cavazos is a 73-year-old man who presented on 05/21/2019 with chief complaint of palpitation. In the emergency room, he was found to have atrial fibrillation with a rapid ventricular response. His pulse on presentation was 134. He was given intravenous diltiazem and was started on intravenous diltiazem drip, following which he converted back to a normal sinus rhythm so he was admitted to medical floor, and his routine home medications were started. The Cardiology Team was consulted. We increased his metoprolol dose to 25 mg b.i.d., and he was also on amiodarone 300 mg daily. The patient was tolerating this medication regimen without any difficulty so it was decided to continue patient on this regimen. The patient did have episodes of bradycardia with heart rate of 45 per minute, but he was asymptomatic so it was decided to discharge the patient and have a followup with regular sprue cutting press operator. 25 minutes was spent in discharging this patient. Plan of care was discussed with the patient and his family. Their questions have been answered. cc: Sarbjit Leiva MD MTDD
== END 2019-05-22 16:08 | disposition home or self-care (01) | DRG 310 ==
LOC: SUPCPDRO → ED 20:27 → EDIPHOLD 05-21 01:25 → SUATTDRO 05-21 01:25 → 1N 05-21 05:39
PROVIDERS: ATTEND Internal Medicine